=== PATIENT | female | born 1965 | race Caucasian/White ===

== ENCOUNTER 2017-01-29 12:50 | Emergency (ER) | payer MEDICARE, MEDICAID ==
[2017-01-29 13:15] VITALS: BP 130/77
--- NOTE | 2017-01-29 15:38 | UC ---
Headache HPI - HPI Summary HPI Summary: The patient comes in today for: 1. Headache--she states that she does not have a headache, but states that she has pain of the back of her head: Onset: 2 days ago. Palliative/provocative: Touching makes it worse. Nothing helps. Quality: Dull ache. Region: Posterior back of the head. Severity: 7/10 Time: Constant. Associated symptoms: Injury: None. Previous disease: None. Home treatment: No medications take for this. PCP: Dr. Potter The patient is concerned because her daughter from a brain tumor. * - History Of Current Complaint Chief Complaint: UC Stated Complaint: BACK OF HEAD HURTS Time Seen by Provider: 01/29/17 15:32 Hx Obtained From: Patient Hx Last Menstrual Period: many years ago - uterine ablation ?: No - Allergies/Home Medications Allergies/Adverse Reactions: Allergies Allergy/AdvReac Type Severity Reaction Status Date / Time Sulfamethoxazole Allergy Unknown SWELLING Verified 01/29/17 13:15 w/Trimethoprim FACIAL [From Bactrim] SEASONAL ALLERGIES Allergy SINUS Uncoded 01/29/17 13:15 PMH/Surg Hx/FS Hx/Imm Hx Previously Healthy: No Endocrine History Of: Reports: Thyroid Disease, Dyslipidemia Denies: Diabetes, Hyperthyroidism, Hypothyroidism Cardiovascular History Of: Reports: Hypertension - ON DAILY MEDS Respiratory History Of: Reports: Asthma - INHALER PRN, Bronchitis - 1 1/2 MONTH AGO Denies: COPD, Pneumonia, Pulmonary Embolism GI/ History Of: Reports: Gastroesophageal Reflux - She either has GERD or dyspepsia or both. Denies: Ulcer, Gastrointestinal Bleed, Gall Bladder Disease, Kidney Stones, Diverticulitis, Renal Disease, Urosepsis Neurological History Of: Denies: TIA, CVA, Dementia, Seizures, Migraine Psychological History Of: Reports: Depression - ON DAILY MEDS Denies: Anxiety, Bipolar Disorder, Schizophrenia, Post Traumatic Stress Disorder Cancer History Of: Denies: Lung Cancer, Colorectal Cancer, Breast Cancer, Prostate Cancer, Cervical Cancer Other History Of: Negative For: HIV, Hepatitis B, Hepatitis C, Anticoagulant Therapy - Surgical History Surgical History: Yes Surgery Procedure, Year, and Place: YOUNG CHILD T&A. TEENAGER THYROIDECTOMY. [address] [facility] [place]. 09/16 R ELBOW SURGERY FOR TENDONITIS. DEQUERVEIN- [facility]. 09/16 R CARPAL TUNNEL SURGERY, LT CARPAL TUNNEL RELEASE 2012. uterine ablation - Family History Known Family History: Positive: Cardiac Disease, Hypertension - Social History Occupation: Employed Full-time Alcohol Use: Rare Substance Use Type: None Smoking Status (MU): Never Smoked Tobacco - Immunization History Most Recent Influenza Vaccination: fall 2012 Review of Systems Constitutional: Negative Skin: Negative Eyes: Negative ENT: Negative Respiratory: Negative Cardiovascular: Negative Gastrointestinal: Negative Genitourinary: Negative Musculoskeletal: Arthralgia, Myalgia All Other Systems Reviewed And Are Negative: Yes Physical Exam Triage Information Reviewed: Yes Appearance: Well-Appearing, No Pain Distress, Well-Nourished Vital Signs: Initial Vital Signs Temp 98 F 01/29/17 13:08 Pulse 108 01/29/17 13:08 Resp 18 01/29/17 13:08 BP 130/77 01/29/17 13:08 Pulse Ox 98 01/29/17 13:08 Vital Signs Reviewed: Yes Eyes: Positive: Conjunctiva Clear. Negative: Discharge ENT: Positive: Hearing grossly normal. Negative: Pharyngeal erythema, Nasal congestion, Nasal drainage, TM bulging, TM dull, TM red, Tonsillar swelling, Tonsillar exudate Dental: Negative: Gross Decay/Caries @, Dental Fracture @ Neck: Positive: Supple, Nontender, No Lymphadenopathy. Negative: Nuchal Rigidity Respiratory: Positive: Chest non-tender, Lungs clear, No respiratory distress, No accessory muscle use. Negative: Crackles, Wheezing Cardiovascular: Positive: RRR, No Murmur Abdomen Description: Positive: Nontender, No Organomegaly, Soft Musculoskeletal: Positive: Strength Intact, ROM Intact Neurological: Positive: Alert, Muscle Tone Normal, Other: Psychological: Positive: Age Appropriate Behavior, Consolable Skin: Positive: Other - Evaluation of the skin in the area where she has the "bumps" and tenderness revealed no rash or masses. However, palpation of the greater occipetal nerve elicits the discomfort that she has.. Negative: rashes , breakdown Headache Course/Dx - Course Course Of Treatment: Patient was told that I thought her symptoms were related to left greater occipetal neuropathy. - Differential Dx/Diagnosis Provider Diagnoses: Left greater occipetal neuropathy. Discharge - Discharge Plan Condition: Stable Disposition: HOME Patient Education Materials: General Headache (ED) Referrals: Rafael March MD [Primary Care Provider] - 1 Week (Please see your primary care provider later this week or early next week. Use Tylenol to start in terms of pain control. If this does not help, you can also try a short course of an anti-inflammatory medication such as naproxen. Warm or cold compresses may be helpful. )
== END 2017-01-29 16:29 | disposition home or self-care (01) ==
LOC: UCEAST 12:50
DX: M54.81 Occipital neuralgia (principal); I10 Essential (primary) hypertension; J45.909 Unspecified asthma, uncomplicated; F32.9 Major depressive disorder, single episode, unspecified; Z88.2 Allergy status to sulfonamides
CPT/HCPCS: 99212; G0463

== ENCOUNTER 2017-04-03 15:21 | Emergency (ER) | payer MEDICARE, MEDICAID ==
[2017-04-03 16:18] VITALS: BP 148/78
--- NOTE | 2017-04-03 16:56 | UC ---
Complaint Female HPI - HPI Summary HPI Summary: pain , urgency and burning with urination began yesterday-no fevers, chills, nausea, vomiting - History Of Current Complaint Chief Complaint: UCGU Stated Complaint: URINARY ISSUE Time Seen by Provider: 04/03/17 16:54 Hx Obtained From: Patient Hx Last Menstrual Period: many years ago - uterine ablation ?: No Onset/Duration: Sudden Onset, Lasting Days - 1, Still Present Timing: Constant Severity Initially: Mild Severity Currently: Moderate Pain Intensity: 5 Pain Scale Used: 0-10 Numeric Character: Burning Aggravating Factor(s): Urination Alleviating Factor(s): Nothing Associated Signs And Symptoms: Positive: Negative - Allergies/Home Medications Allergies/Adverse Reactions: Allergies Allergy/AdvReac Type Severity Reaction Status Date / Time Sulfamethoxazole Allergy Unknown SWELLING Verified 01/29/17 13:15 w/Trimethoprim FACIAL [From Bactrim] SEASONAL ALLERGIES Allergy SINUS Uncoded 01/29/17 13:15 PMH/Surg Hx/FS Hx/Imm Hx Endocrine History: Hypothyroidism, Dyslipidemia Cardiovascular History: Hypertension GI/ History: Gastroesophageal Reflux Other History Of: Negative For: HIV, Hepatitis B, Hepatitis C, Anticoagulant Therapy - Surgical History Surgical History: Yes Surgery Procedure, Year, and Place: YOUNG CHILD T&A. TEENAGER THYROIDECTOMY. 1990 BILATERAL TUBAL LIGATION [facility]. ? CARDIAC ARTERY ABLATION [place]. 09/16 R ELBOW SURGERY FOR TENDONITIS. DEQUERVEIN- [facility]. 09/16 R CARPAL TUNNEL SURGERY, LT CARPAL TUNNEL RELEASE 2012. uterine ablation - Family History Known Family History: Positive: Cardiac Disease, Hypertension - Social History Occupation: Employed Full-time Lives: With Family Alcohol Use: Rare Substance Use Type: None Smoking Status (MU): Never Smoked Tobacco - Immunization History Most Recent Influenza Vaccination: fall 2012 Review of Systems Constitutional: Negative Skin: Negative Eyes: Negative ENT: Negative Respiratory: Negative Cardiovascular: Negative Gastrointestinal: Abdominal Pain Genitourinary: Dysuria, Frequency, Urgency Motor: Negative Neurovascular: Negative Musculoskeletal: Negative Neurological: Negative Psychological: Negative All Other Systems Reviewed And Are Negative: Yes Physical Exam Triage Information Reviewed: Yes Appearance: Well-Appearing, No Pain Distress, Well-Nourished Vital Signs: Initial Vital Signs Temp 97.8 F 04/03/17 16:14 Pulse 86 04/03/17 16:14 Resp 18 04/03/17 16:14 BP 148/78 04/03/17 16:14 Pulse Ox 99 04/03/17 16:14 Vital Signs Reviewed: Yes Eye Exam: Normal Eyes: Positive: Conjunctiva Clear ENT Exam: Normal ENT: Positive: Normal ENT inspection, Hearing grossly normal, TMs normal. Negative: Nasal congestion, Nasal drainage, Trismus, Muffled/hoarse voice Dental Exam: Normal Neck exam: Normal Neck: Positive: Supple, Nontender Respiratory Exam: Normal Respiratory: Positive: Chest non-tender, Lungs clear, Normal breath sounds, No respiratory distress, No accessory muscle use Cardiovascular Exam: Normal Cardiovascular: Positive: RRR, No Murmur, Pulses Normal, Brisk Capillary Refill Abdominal Exam: Other Abdomen Description: Positive: No Organomegaly, Soft, Other: - lower abd pain. Negative: CVA Tenderness (R), CVA Tenderness (L) Bowel Sounds: Positive: Present Musculoskeletal Exam: Normal Musculoskeletal: Positive: Strength Intact, ROM Intact, No Edema Neurological Exam: Normal Neurological: Positive: Alert, Muscle Tone Normal Psychological Exam: Normal Skin Exam: Normal Diagnostics - Laboratory Diagnostic Studies Completed/Ordered: blood, leuks in urine Complaint Female Dx - Course Course Of Treatment: , Keflex, pyridium, increase fluids, culture urine, follow BP with PCP, follow with pcp prn - Differential Dx/Diagnosis Differential Diagnosis/HQI/PQRI: Ovarian Cyst, Pelvic Inflammatory Disease, Retained Foreign Body, Ureteral Stone, Urinary Tract Infection Provider Diagnoses: Uti, Hypertension in poor control Discharge - Discharge Plan Condition: Stable Disposition: HOME Prescriptions: Cephalexin CAP* [Keflex CAP*] 500 mg PO BID #20 cap Phenazopyridine TAB* [Pyridium 100 mg TAB*] 100 mg PO TID PRN #6 tab PRN Reason: urinary pain and burning Patient Education Materials: Phenazopyridine (By mouth), Urinary Tract Infection in Women (ED), DASH Eating Plan (ED), Hypertension (ED) Referrals: Rafael March MD [Primary Care Provider] - 2 Weeks
== END 2017-04-03 17:33 | disposition home or self-care (01) ==
LOC: UCEAST 15:21
DX: N39.0 Urinary tract infection, site not specified (principal); E03.9 Hypothyroidism, unspecified; E78.5 Hyperlipidemia, unspecified; I10 Essential (primary) hypertension; K21.9 Gastro-esophageal reflux disease without esophagitis
CPT/HCPCS: 81003; 87086; 99212; G0463

== ENCOUNTER 2019-01-28 17:40 | Emergency (ER) | payer MEDICARE, MEDICAID ==
[2019-01-28] MEDS ORDERED: NS 0.9% 1000 ML** 1,000 ML IV ONE ×2 (18:01→18:38)
[2019-01-28] MEDS ORDERED: Morphine 4 MG/ML VIAL (1 ml) 4 MG/ML VIAL IV STA (18:06)
[2019-01-28] MEDS ORDERED: Ondansetron INJ* 2 MG/ML VIAL IV ONE (18:07)
--- NOTE | 2019-01-28 18:09 | ED ---
Influenza-Like Illness - HPI Summary HPI Summary: This pt is a 53 y/o female presenting to [facility] via EMS for influenza like symptoms since yesterday. Pt reports yesterday she began to experience a cough, chills and lower abd pain. She notes her abd pain is worse today. Additionally states sore throat, runny nose, nasal congestion, sinus pain, headache, nausea. Denies vomiting. She rates her headache 9/10 in severity. Pt with fever of 100.3 F currently in the ED. 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 - History of Current Complaint Chief Complaint: EDFluSymptoms Time Seen by Provider: 01/28/19 17:51 Hx Obtained From: Patient Onset/Duration: Gradual Onset, Lasting Days - 1, Still Present Severity: Moderate Associated Signs & Symptoms: Fever, F/C, Cough, Sore Throat, Nasal Congestion, Headache - Allergy/Home Medications Allergies/Adverse Reactions: Allergies Allergy/AdvReac Type Severity Reaction Status Date / Time Sulfa (Sulfonamide Allergy Swelling Verified 01/28/19 17:45 Antibiotics) trimethoprim Allergy Swelling Verified 01/28/19 17:45 SEASONAL ALLERGIES Allergy SINUS Uncoded 01/29/17 13:15 PMH/Surg Hx/FS Hx/Imm Hx Endocrine/Hematology History: Reports: Hx Thyroid Disease Denies: Hx Anticoagulant Therapy, Hx Diabetes Cardiovascular History: Reports: Hx Hypertension - ON DAILY MEDS, 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, FIELD REPORTER Denies: Hx Pacemaker/ICD Respiratory History: Reports: Hx Asthma - INHALER PRN Denies: Hx Chronic Obstructive Pulmonary Disease (COPD), Hx Lung Cancer, Hx Pneumonia, Hx Pulmonary Embolism GI History: Reports: Hx Irritable Bowel - SINCE TEENAGER,, Other GI Disorders Denies: Hx Gall Bladder Disease, Hx Gastrointestinal Bleed, Hx Ulcer, Hx Urosepsis Comment Only: Hx Gastroesophageal Reflux Disease - DENIES BUT ON OMEPRAZOLE History: Denies: Hx Kidney Stones, Hx Renal Disease Musculoskeletal History: Reports: Hx Arthritis - RIGHT SHOULDER, Hx Tendonitis - BOTH ARMS Sensory History: Reports: Hx Contacts or Glasses - GLASSES Denies: Hx Hearing Aid Opthamlomology History: Reports: Hx Contacts or Glasses - GLASSES Neurological History: Reports: Hx Headaches Denies: Hx Dementia, Hx Migraine, Hx Seizures, Hx Transient Ischemic Attacks (TIA) Psychiatric History: Reports: Hx Depression - ON DAILY MEDS Denies: Hx Anxiety, Hx Panic Disorder, Hx Schizophrenia, Hx Bipolar Disorder - Cancer History Hx Chemotherapy: No Hx Radiation Therapy: No - Surgical History Surgery Procedure, Year, and Place: YOUNG CHILD T&A. TEENAGER THYROIDECTOMY. 1990 BILATERAL TUBAL LIGATION [facility] [place]. 1999[place] ? CARDIAC ARTERY ABLATION [place]. 09/16 R ELBOW SURGERY FOR TENDONITIS. DEQUERVEIN- [facility]. 09/16 R CARPAL TUNNEL SURGERY, LT CARPAL TUNNEL RELEASE 2012. uterine ablation Hx Anesthesia Reactions: Yes - WITH RIGHT ELBOW SURGERY- HAD A HARD TIME WAKING IUP - Immunization History Immunizations Up to Date: Yes Infectious Disease History: No Infectious Disease History: Denies: Hx Clostridium Difficile, Hx Hepatitis, Hx Human Immunodeficiency Virus (HIV), Hx of Known/Suspected MRSA, Hx Shingles, Hx Tuberculosis, Hx Known/ Suspected VRE, Hx Known/Suspected VRSA, History Other Infectious Disease, Traveled Outside the [place] in Last 30 Days - Family History Known Family History: Positive: Cardiac Disease, Hypertension - Social History Alcohol Use: Rare Substance Use Type: Reports: None Smoking Status (MU): Never Smoked Tobacco Review of Systems Positive: Fever, Chills ENT: Other - POS: nasal congestion, sinus pain Positive: Sore Throat, Nasal Discharge Positive: Cough Positive: Abdominal Pain, Nausea Positive: Headache All Other Systems Reviewed And Are Negative: Yes Physical Exam - Summary Physical Exam Summary: Appearance: Well appearing, no pain distress Skin: warm, dry, reflects adequate perfusion Head/face: normal Eyes: EOMI, NURA ENT: normal Neck: supple, non-tender Respiratory: CTA, breath sounds present Cardiovascular: RRR, pulses symmetrical Abdomen: LLQ tenderness, soft Musculoskeletal: normal, strength/ROM intact Neuro: normal, sensory motor intact, A&Ox3 GCS: 15 Triage Information Reviewed: Yes Vital Signs On Initial Exam: Initial Vitals Temp Pulse Resp BP Pulse Ox 100.3 F 115 20 150/78 95 01/28/19 17:45 01/28/19 17:45 01/28/19 17:45 01/28/19 17:45 01/28/19 17:45 Vital Signs Reviewed: Yes Diagnostics - Vital Signs Vital Signs Temp Pulse Resp BP Pulse Ox 01/28/19 17:55 117 147/75 93 01/28/19 17:45 100.3 F 115 20 150/78 95 - Laboratory Result Diagrams: 01/28/19 18:31 01/28/19 18:31 Lab Statement: Any lab studies that have been ordered have been reviewed, and results considered in the medical decision making process. - CT Brain CT CT Interpretation Completed By: Radiologist Summary of CT Findings: IMPRESSION: No acute intracranial pathology. Dr. Grace has reviewed this report. Abdomen/pelvis CT CT Interpretation Completed By: Radiologist Summary of CT Findings: IMPRESSION: 1. Stable small hiatal hernia. 2. Stable possible small uterine fibroid measuring 1.3 cm. 3. No acute diverticulitis or other inflammatory change in the bowel. Dr. Grace has reviewed this report. - EKG 18:19 Cardiac Rate: Tachycardia - at 115 bpm EKG Rhythm: Sinus Tachycardia Summary of EKG Findings: No acute changes. Re-Evaluation - Re-Evaluation First Eval Re-Evaluation Time: 21:32 Comment: Reviewed lab and CT results with the pt. She will be discharged home with follow up from PCP. Flu Symptom Course/Dx - Course Assessment/Plan: Pt is a 53 y/o female who presents via EMS for influenza like symptoms since yesterday. Her symptoms include cough, chills, sore throat, runny nose, nasal congestion, sinus pain, abd pain, nausea, headache. Fever of 100.3 F in the ED. Blood work, urinalysis, EKG, CTs obtained. Influenza A is positive. Brain CT is negative. Abdomen/Pelvis CT shows 1. Stable small hiatal hernia. 2. Stable possible small uterine fibroid measuring 1.3 cm. 3. No acute diverticulitis or other inflammatory change in the bowel. In the ED course the pt received IV fluids, morphine, zofran. Pt will be discharged home with follow up from her PCP in 3 days. Pt given Rx for Tamiflu. She is instructed to return to the ED for any new or worsening symptoms. - Diagnoses Differential Diagnosis/HQI/PQRI: Positive: Influenza, Upper Respiratory Infection, Other - diverticulitis Provider Diagnoses: Influenza Discharge - Sign-Out/Discharge Documenting (check all that apply): Patient Departure - Discharge home Patient Received Moderate/Deep Sedation with Procedure: No - Discharge Plan Condition: Stable Disposition: HOME Prescriptions: Oseltamivir Phosphate [Tamiflu] 75 mg PO BID #10 capsule Patient Education Materials: Influenza (ED) Referrals: Rafael March MD [Primary Care Provider] - Additional Instructions: Please follow up with your primary care provider in 3 days. RETURN TO THE ED FOR ANY WORSENING OR NEW SYMPTOMS. - Billing Disposition and Condition Condition: STABLE Disposition: Home - Attestation Statements Document Initiated by Scribe: Yes Documenting Scribe: Fiordaliza Weldon Provider For Whom Scribe is Documenting (Include Credential): Pavel Grace MD Scribe Attestation: Fiordaliza Zepeda scribed for Pavel Grace MD on 01/28/19 at 2148. Scribe Documentation Reviewed: Yes Provider Attestation: The documentation as recorded by the Fiordaliza magaña accurately reflects the service I personally performed and the decisions made by Pavel savage MD Status of Scribe Document: Viewed
--- OUTSIDE RECORDS SUMMARY | 2019-01-28 18:11 | XMS REPORT | Continuity of Care Document ---
:1965 External Reference #:[id number] Author Name Riir Ventura Care Team Providers Name Role Phone Rafael March M.D. Primary Care Physician Unavailable Payers Date Identification Numbers Payment Provider Subscriber Expires: 2015 Policy Number: [id number] [facility] Drea Moreno PayID: [id number] [address] [address] [place] [address] Expires: 2013 Policy Number: [id number] [place] Drea Moreno PayID: [id number] [address] [place] [address] Policy Number: [id number] Medicare [facility] Drea Moreno PayID: [id number] [address] [address] [place] [address] Policy Number: [id number] [place] Drea Moreno PayID: [id number] [address] [place] [address] Advance Directives Description No Information Available Problems Date Description Provider Status Onset: 05/20/2013 Dysplasia of cervix ANTELMO Lazo Active Note: +HRHPV Family History Date Family Member(s) Observation Comments Father Hypertension Father Diabetes Mellitus, II Father Heart Disease pacemaker Mother Osteoporosis Number of Children 3 First Son Add First Son Hepatitis C Second Son Bipolar Disorder First Daughter Drug Addiction went through rehab, clean for several years. First Daughter due to Brain Tumor () - 09/2015 First Daughter Brain Tumor stage 3 in her brain stem as of 2014 Number of Siblings Siblings: 5 First Brother A&W Second Brother Prostate Cancer First Sister due to Unknown Causes () Second Sister due to blood disease () Second Sister due to Bladder Cancer () Third Sister A&W Paternal Grandfather due to Diabetes () Paternal Grandmother due to Old Age () Maternal Grandfather due to Unknown Causes () Maternal Grandmother Arthritis Maternal Grandmother due to Unknown Causes () Maternal Grandmother Dementia Maternal Grandmother CHF Social History Type Date Description Comments Sex Unknown Education Highest level of education completed is 12th grade Marital Status Patient is single Living Situation Patient lives alone Diet Diet is healthy and well balanced Occupation Disabled Cigarette Use Never smoked cigarettes Alcohol Rarely drinks alcohol Tobacco Use Start: Unknown Patient has never smoked Drug Use Denies drug use Smoking Status Reviewed: 01/15/19 Patient has never smoked Daily Caffeine Does not consume caffeine Exercise Type/Frequency Exercises sporadically Current Seat Belt/Car Seat Always uses a seat belt Currently Active The patient is currently sexually active Contraceptive Methods Does not currently use any method of control STD's Has HPV Allergies, Adverse Reactions, Alerts Date Description Reaction Status Severity Comments 12/08/2005 Bactrim Active Medications Medication Date Status Form Strength Qnty SIG Indications Ordering Provider Prempro 03/01/ Active Tablets 0.45-1.5m 84tab 1 by mouth Tiffanie 2017 g s every day LUIS Jama Synthroid / Active 88mcg Unknown 0000 Singulair / Active Tablets 10mg Unknown 0000 Pristiq / Active Tablets 100mg Unknown 0000 ER 24HR Clarinex / Active Unknown 0000 Losartan / Active Unknown Potassium/Hydroch 0000 lorothiazide Ibuprofen / Active 600mg Unknown 0000 Omeprazole / Active 40mg Unknown 0000 Pravastatin / Active Unknown Sodium 0000 Align / Active Capsules 4mg one by Unknown 0000 mouth daily for probiotic Phenazopyridine 04/25/ Hx Tablets 200mg 12tab 2 po 3 xa Piter A. HCL 2016 - day with Gelber, 03/18/ meals x 2 M.D. 2017 days Femhrt Low Dose 01/17/ Hx Tablets 0.5-2.5mg 90tab 1 po qd Nicole 2015 - -mcg s Jump, 07/24/ ANP-C 2015 Norethindrone 12/06/ Hx Tablets 1-5mg-mcg Nicole Acetate/Ethinyl 2015 - Jump, Estradiol 01/17/ ANP-C 2015 Nuvessa 11/29/ Hx Gel 1.3% 1unit use at Nicole 2016 - s bedtime x 1 Jump, 07/24/ ANP-C 2016 Metrogel-Vaginal 11/30/ Hx Gel 0.75% 1TX 1 Nicole 2014 - applicator Jump, 12/05/ every night ANP-C 2015 at bedtime x 5 days Metrogel-Vaginal 12/23/ Hx Gel 0.75% 1TX 1 Nicole 2013 - applicator Jump, 12/28/ qhs x 5 ANP-C 2013 days Cipro 12/18/ Hx Tablets 250mg 10tab 1 po bid x Nicole 2013 - s 5 Jump, 01/02/ ANP-C 2012 Keflex 05/29/ Hx Capsules 500mg 14cap 1 po bid x Nicole 2012 - s 7 Jump, 06/05/ ANP-C 2012 Prempro 04/29/ Hx Tablets 0.45-1.5m 84tab take 1 N95.1 Nicole 2011 - g s tablet by Jump, 01/17/ mouth one ANP-C 2016 time daily Activella 08/18/ Hx Tablets 0.5-0.1mg 84tab Take One 627.2 Nicole 2009 - s Tablet By Jump, 04/29/ Mouth Every ANP-C 2011 Day Activella 01/24/ Hx Tablets 0.5-0.1mg 1mont 1 po qd Nicole 2009 - h Jump, 08/21/ ANP-C 2009 Abilify 06/21/ Hx Tablets 5mg Unknown 2008 - 2009 Ambien CR 07/09/ Hx Tablets 12.5mg 30tab 1 po qhs Marco Antonio Burdick 2007 - s prn C.N.M. 2008 Laclotion 06/14/ Hx Lotion 12% 225GR apply once Leona 2006 - A day Wil, 01/23/ CN 2009 Ambien CR 06/12/ Hx Tablets 6.25mg 15tab 1 tablet po Leona 2006 - s hs prn Wil, 12/03/ sleep CN 2007 Effexor /00/ Hx Unknown - 2006 Silvana D // Hx Unknown 2006 Avapro / Hx Tablets 150mg daily Unknown 2014 Enablex / Hx Tablets 15mg Unknown 2007 Nexium / Hx Unknown 2014 Nasonex / Hx Unknown 2017 Black Cohosh / Hx Unknown 2017 Vitamin B12 / Hx Tablets 1000mcg once a day Unknown 0000 - ER 2017 Medications Administered in Office Medication Date Status Form Strength Qnty SIG Indications Ordering Provider PT SCRN Tbco Administered Injection Mya Id as Non User 019 MD Gareth No PT Tbco Administered Injection Nicole SCRN RNG 018 Jump, ANP-C PT SCRN Tbco Administered Injection Nicole Id as Non User 018 Jump, ANP-C SCRN Cris Perf Administered Injection Nicole RSLTS Not Doc 018 Jump, ANP-C PT SCRN Tbco Administered Injection Piter Tobin Id as Non User 018 Melina Cuba Immunizations Description No Information Available Vital Signs Date Vital Result Comment 01/15/2019 10:25am BP Systolic 146 mmHg BP Diastolic 84 mmHg Height 62 inches 5'2" Weight 197.00 lb BMI (Body Mass Index) 36.0 kg/m2 Last Menstrual Period 2371278 5 Parity 3 12/03/2018 2:15pm BP Systolic 150 mmHg BP Diastolic 86 mmHg Height 62 inches 5'2" Weight 199.00 lb BMI (Body Mass Index) 36.4 kg/m2 Last Menstrual Period 3462518 5 Parity 3 10/10/2018 11:07am BP Systolic 142 mmHg BP Diastolic 84 mmHg Height 62 inches 5'2" Weight 200.00 lb BMI (Body Mass Index) 36.6 kg/m2 Last Menstrual Period 7194328 5 Parity 3 03/18/2018 2:40pm BP Systolic 158 mmHg BP Diastolic 92 mmHg Height 62 inches 5'2" Weight 196.00 lb BMI (Body Mass Index) 35.8 kg/m2 Last Menstrual Period 7109896 5 Parity 3 02/27/2017 3:26pm BP Systolic 128 mmHg BP Diastolic 82 mmHg Height 62 inches 5'2" Weight 189.00 lb BMI (Body Mass Index) 34.6 kg/m2 Last Menstrual Period 3772910 5 Parity 3 07/24/2016 11:27am BP Systolic 150 mmHg BP Diastolic 78 mmHg Height 62 inches 5'2" Weight 185.00 lb BMI (Body Mass Index) 33.8 kg/m2 Last Menstrual Period 3827078 5 Parity 3 12/27/2015 2:34pm BP Systolic 122 mmHg BP Diastolic 82 mmHg Height 62 inches 5'2" Weight 186.00 lb BMI (Body Mass Index) 34.0 kg/m2 Last Menstrual Period 4046047 5 Parity 3 11/29/2015 2:55pm BP Systolic 136 mmHg BP Diastolic 80 mmHg Height 62 inches 5'2" Weight 185.00 lb BMI (Body Mass Index) 33.8 kg/m2 Last Menstrual Period 2978628 5 Parity 3 07/05/2015 1:13pm BP Systolic 124 mmHg BP Diastolic 82 mmHg Height 62 inches 5'2" Weight 186.00 lb BMI (Body Mass Index) 34.0 kg/m2 Last Menstrual Period 5612736 5 Parity 3 03/22/2015 11:00am BP Systolic 124 mmHg BP Diastolic 78 mmHg Height 62 inches 5'2" Weight 186.00 lb BMI (Body Mass Index) 34.0 kg/m2 01/04/2015 10:45am BP Systolic 138 mmHg BP Diastolic 84 mmHg Height 62 inches 5'2" Weight 188.00 lb BMI (Body Mass Index) 34.4 kg/m2 Last Menstrual Period 6010514 5 Parity 3 11/26/2014 3:38pm BP Systolic 136 mmHg BP Diastolic 86 mmHg Height 62 inches 5'2" Weight 188.00 lb BMI (Body Mass Index) 34.4 kg/m2 Last Menstrual Period 4090435 5 Parity 3 01/02/2014 10:53am BP Systolic 120 mmHg BP Diastolic 78 mmHg Height 62 inches 5'2" Weight 183.00 lb BMI (Body Mass Index) 33.5 kg/m2 5 Parity 3 12/18/2013 10:59am BP Systolic 128 mmHg BP Diastolic 82 mmHg Height 62 inches 5'2" Weight 182.00 lb BMI (Body Mass Index) 33.3 kg/m2 5 Parity 3 05/27/2013 10:19am BP Systolic 136 mmHg BP Diastolic 78 mmHg Height 62 inches 5'2" Weight 182.00 lb BMI (Body Mass Index) 33.3 kg/m2 5 Parity 3 05/14/2013 12:50pm BP Systolic 124 mmHg BP Diastolic 80 mmHg Height 62 inches 5'2" Weight 179.00 lb BMI (Body Mass Index) 32.7 kg/m2 5 Parity 3 03/07/2013 11:18am BP Systolic 112 mmHg BP Diastolic 74 mmHg Height 62 inches 5'2" Weight 176.00 lb BMI (Body Mass Index) 32.2 kg/m2 5 Parity 3 02/03/2013 2:32pm BP Systolic 130 mmHg BP Diastolic 82 mmHg Height 62 inches 5'2" Weight 178.00 lb BMI (Body Mass Index) 32.6 kg/m2 5 Parity 3 11/25/2012 10:45am BP Systolic 112 mmHg BP Diastolic 74 mmHg Height 62 inches 5'2" Weight 178.00 lb BMI (Body Mass Index) 32.6 kg/m2 5 Parity 3 11/15/2012 11:04am BP Systolic 128 mmHg BP Diastolic 66 mmHg Height 62 inches 5'2" Weight 181.00 lb BMI (Body Mass Index) 33.1 kg/m2 04/29/2012 11:03am BP Systolic 116 mmHg BP Diastolic 82 mmHg Height 62 inches 5'2" Weight 178.00 lb BMI (Body Mass Index) 32.6 kg/m2 Last Menstrual Period 0 2007 5 Parity 3 09/22/2011 11:42am BP Systolic 120 mmHg BP Diastolic 66 mmHg Height 62 inches 5'2" Weight 183.00 lb BMI (Body Mass Index) 33.5 kg/m2 08/21/2011 10:30am BP Systolic 150 mmHg BP Diastolic 78 mmHg BP Systolic Recheck 128 mmHg BP Diastolic Recheck 80 mmHg Height 62 inches 5'2" Weight 185.00 lb BMI (Body Mass Index) 33.8 kg/m2 5 Parity 3 03/06/2011 10:39am BP Systolic 128 mmHg BP Diastolic 84 mmHg Height 62 inches 5'2" Weight 177.00 lb BMI (Body Mass Index) 32.4 kg/m2 Last Menstrual Period 0 5 Parity 3 08/29/2010 9:56am BP Systolic 118 mmHg BP Diastolic 78 mmHg Height 62 inches 5'2" Weight 167.00 lb BMI (Body Mass Index) 30.5 kg/m2 5 Parity 3 08/18/2010 11:10am BP Systolic 132 mmHg BP Diastolic 74 mmHg Height 62 inches 5'2" Weight 169.00 lb BMI (Body Mass Index) 30.9 kg/m2 5 Parity 3 07/21/2010 2:30pm BP Systolic 124 mmHg BP Diastolic 78 mmHg Height 62 inches 5'2" Weight 168.00 lb BMI (Body Mass Index) 30.7 kg/m2 5 Parity 3 04/25/2010 10:23am BP Systolic 110 mmHg BP Diastolic 82 mmHg Height 62 inches 5'2" Weight 166.00 lb BMI (Body Mass Index) 30.4 kg/m2 5 Parity 3 01/24/2010 9:22am BP Systolic 130 mmHg BP Diastolic 78 mmHg Height 62 inches 5'2" Weight 164.00 lb BMI (Body Mass Index) 30.0 kg/m2 Last Menstrual Period 0 2007 5 Parity 3 06/21/2009 1:21pm BP Systolic 118 mmHg BP Diastolic 70 mmHg Height 62 inches 5'2" Weight 162.00 lb BMI (Body Mass Index) 29.6 kg/m2 06/12/2008 1:05pm BP Systolic 122 mmHg BP Diastolic 74 mmHg Height 62 inches 5'2" Weight 141.00 lb BMI (Body Mass Index) 25.8 kg/m2 04/29/2008 1:30pm BP Systolic 120 mmHg BP Diastolic 80 mmHg Height 62 inches 5'2" Weight 142.00 lb BMI (Body Mass Index) 26.0 kg/m2 Last Menstrual Period [id number] 04/24/2008 1:08pm BP Systolic 120 mmHg BP Diastolic 88 mmHg Body Temperature 97.0 F Height 62 inches 5'2" Weight 142.00 lb BMI (Body Mass Index) 26.0 kg/m2 Last Menstrual Period 6829562 5 Parity 3 06/12/2007 4:40pm BP Systolic 92 mmHg BP Diastolic 64 mmHg Height 62 inches 5'2" Weight 145.00 lb BMI (Body Mass Index) 26.5 kg/m2 12/08/2005 11:50am BP Systolic 152 mmHg BP Diastolic 84 mmHg Height 62 inches 5'2" Weight 135.00 lb BMI (Body Mass Index) 24.7 kg/m2 Last Menstrual Period 1395735 5 Parity 3 Results Test Date Facility Test Result H/L Range Note Laboratory test 12/03/2018 [facility] Surgical SEE RESULT 1 [place] [address] Pathology BELOW [phone] Laboratory test 10/10/2018 [facility] Cytology SEE RESULT LGSIL,+HPV 2 finding [place] [address] BELOW [phone] Laboratory test 03/18/2018 [facility] Cytology SEE RESULT 3 finding [place] [address] BELOW [phone] Laboratory test 04/25/2017 [facility] Surgical SEE RESULT 4 finding [place] [address] Pathology BELOW [phone] Laboratory test 02/27/2017 [facility] Cytology SEE RESULT letter 5 finding [place] [address] BELOW dictatd [phone] Human Papilloma Virus Rna POSITIVE Abnormal Negative 6 Laboratory test 07/24/2016 [facility] Cytology SEE RESULT LGSIL 7 finding [place] [address] BELOW [phone] Human Papilloma Virus Rna POSITIVE Abnormal Negative 8 Laboratory test 12/27/2015 [facility] Surgical SEE RESULT 9 finding [place] [address] Pathology BELOW [phone] Laboratory test 11/29/2015 [facility] Cytology SEE RESULT LGSIL 10 finding [place] [address] BELOW [phone] Human Papilloma Virus Rna POSITIVE Abnormal Negative 11 Laboratory test 07/05/2015 [facility] Cytology SEE RESULT LGSIL 12 finding [place] [address] BELOW [phone] Human Papilloma Virus Rna POSITIVE Abnormal Negative 13 Laboratory test 01/04/2015 [facility] Surgical RUN DATE: 14 finding [place] [address] Pathology <SEE [phone] NOTE> Laboratory test 11/26/2014 [facility] Cytology RUN DATE: bv 15 finding [place] [address] 11/30/ <SEE [phone] NOTE> Human Papilloma Virus Rna Positive Abnormal Negative 16 Laboratory test 12/18/2013 [facility] Cytology RUN DATE: bv/ 17 finding [place] [address] 12/19/ <SEE [phone] NOTE> HPV High Risk 12/18/2013 [facility] Human ECTO/ENDO [place] [address] Papillomavirus [phone] Source HPV High Risk Type 16, PCR Negative Negative HPV High Risk Type 18, PCR Negative Negative HPV Other Risk types Positive Negative 18 HIV 1/2 AB 05/27/2013 [facility] HIV 1 2 Nonreactive Nonreactive 19 [place] [address] Antibody [phone] RPR 05/27/2013 [facility] Syphilis IgG Nonreactive Nonreactive 20 [place] [address] [phone] RPR TNP Nonreactive RPR Titer TNP Pediatric/Maternal NO GC/Chlamydia Dna 05/27/2013 [facility] GC/Chlamydia Rna (SEE NOTE) Neg [address] [place] [address] [phone] Laboratory test 05/27/2013 [facility] Genital Culture (SEE NOTE ) [address] [place] [address] [phone] Human Papilloma 05/15/2013 [facility] Human See Comment 23 [place] [address] Papillomavirus [phone] Source Human Papillomavirus High Risk Positive Negative 24 Laboratory test 05/14/2013 [facility] Cytology RUN DATE: LGSIL [address] [place] [id number] SEE [phone] NOTE> Laboratory test 02/03/2013 [facility] Surgical RUN DATE: [address] [place] [address] Pathology 02/05/ <SEE [phone] NOTE> Laboratory test 11/25/2012 [facility] Surgical RUN DATE: 27 [place] [address] Pathology <SEE [phone] NOTE> Laboratory test 11/15/2012 [facility] Cytology RUN DATE: LGSIL 28 [place] [address] 11/18/ <SEE [phone] NOTE> Laboratory test 04/29/2012 [facility] Cytology LGSIL [address] [place] [address] ----- <SEE [phone] NOTE> Laboratory test 09/22/2011 [facility] Surgical [address] [place] [address] Pathology ----- <SEE [phone] NOTE> Laboratory test 08/21/2011 [facility] Cytology LGSIL [address] [place] [address] ----- <SEE [phone] NOTE> Laboratory test 03/06/2011 [facility] Cytology [address] [place] [address] ----- <SEE [phone] NOTE> Laboratory test 08/29/2010 [facility] Surgical [address] [place] [address] Pathology ----- <SEE [phone] NOTE> Laboratory test 08/18/2010 [facility] Cytology needs colp [address] [place] [address] ----- <SEE [phone] NOTE> Laboratory test 06/21/2009 [facility] Cytology [address] [place] [address] ----- <SEE [phone] NOTE> Laboratory test 06/12/2008 [facility] Cytology [address] [place] [address] ----- <SEE [phone] NOTE> Laboratory test 12/04/2007 [facility] FSH 124.16 [address] [place] [address] MIU/ML [phone] Laboratory test 06/13/2007 [facility] Cytology [address] [place] [address] ----- <SEE [phone] NOTE> 1 SEE RESULT BELOW Name: DREA MORENO : [address]: Piter Cuba MD Acct: [id number] Unit: [id number] AGE: 53 Location: [facility] Re12/03/18 SEX: F Status: REG REF SPEC: [id number] [place]: 12/03/18 [facility] DR: Piter Cuba MD REQ: [id number] RECD: 12/04/18 STATUS: ANDRES FLORENCE DR: Rafael March MD _ ORDERED: LEVEL 4, LEVEL 5, IMMUNO-FIRST COMMENTS: [id number] FINAL DIAGNOSIS 1. Uterus, cervix, LEEP excision: -- Focal low-grade squamous intraepithelial lesion (condyloma). -- Inked and cauterized margins of resection are clear. 2. Uterus, endocervix, curettage: --Low-grade limits intraepithelial lesion (condyloma). See comment. -- Benign endocervical glandular epithelium and mucus. Comment: Part 2 demonstrates a detached fragments of squamous epithelium demonstrating condylomatous features. An immunohistochemical stain performed on part 2 with appropriate controls demonstrates weak to moderate primarily basilar staining supporting the above rendered diagnosis. PRE-OPERATIVE DIAGNOSIS Low grade squamous intraepithelial lesion, positive human papilloma virus GROSS DESCRIPTION 1. The specimen is received in formalin labeled, Cervical Biopsy by LEEP, and consists of a 1.2 x 1.0 cm curry-white ovoid rubbery focally cauterized soft tissue fragment excised to a depth of 0.7 cm. The specimen is consistent with an unoriented cervical LEEP biopsy. The ectocervix is smooth to wrinkled curry-white with a central 0.7 cm slitlike os. The endocervix is curry-white. The specimen is inked as follows: ectocervical margin-black and endocervical margin-blue, serially sectioned in a radial fashion and entirely submitted in cassettes A through D. CONTINUED ON NEXT PAGE DEPARTMENT OF PATHOLOGY, [address] [place] [address] Jeffy Floyd M.D. Director [facility] # [id number] RUN DATE: 12/09/18 [facility] LAB LIVE PAGE 2 Patient: DREA MORENO [id number] (Continued) GROSS DESCRIPTION (Continued) 2. The specimen is received in formalin labeled, ECC, and consists of a 1.3 x 0.6 x 0.1 cm aggregate of transparent mucus admixed with scant possible soft tissue fragments. Entirely submitted, one cassette. Signed by and Reported on: Jeffy Floyd MD 02/21 0937 END OF REPORT DEPARTMENT OF PATHOLOGY, [address] [place] [address] Jeffy Floyd M.D. Director [facility] # [id number] 2 SEE RESULT BELOW Name: DREA MORENO : [address]: Nicole Bains Acct: [id number] Unit: [id number] AGE: 53 Location: [facility] Re10/10/18 SEX: F Status: REG REF SPEC: [id number] RY[place]: 10/10/18-[address]: Nicole Bains REQ: [id number] RECD: 10/10/180558 STATUS: ANDRES FLORENCE DR: Rafael March MD _ ORDERED: TP IMAGE ANALYS, WEED INSPECTOR PHYS INTERP, HPV/Thin Prep COMMENTS: [id number] EPITHELIAL CELL ABNORMALITIES Low grade squamous intraepithelial lesion (LSIL) Date Time Test Result Flag (u) Normal Range 10/10/18 1122 @ HPV RNA POSITIVE An Negative @ @ The high-risk HPV types detected by the assay include: 16, @ 18, 31, 33, 35, 39, 45, 51, 52, 56, 58, 59, 66, and 68. A. Ectocervical/Endocervical Specimen Adequacy: Satisfactory of evaluation Transformation zone component not identified Patient Information: HPV: High risk HPV RNA testing regardless of pap results. Actual Specimen Date: 10/07/18 LMP If Unknown: 2008 Date of Last Specimen: 03/18/18 Post Menopausal?: N Signed by and Reported on: Namrata Zuniga MD 10/11/18 1830 This Pap test was evaluated with the assistance of the [employer] Test Imaging System. Due to cytologic findings at the verification manager microscope, comprehensive manual rescreening by a Service Order Expediter may be required. The Pap Smear is a screening test designed to aid in the detection of premalignant and malignant conditions of the uterine cervix. It is not a diagnostic procedure and should not be used as the sole means of detecting cervical cancer. Both false- positive and false- negative reports do occur. Depending on your risk status, a Pap smear should be obtained and evaluated every 1-3 years. END OF REPORT DEPARTMENT OF PATHOLOGY, [address] [place] [address] Jeffy Floyd M.D. Director [facility] # [id number] 3 SEE RESULT BELOW Name: DREA MORENO : [address]: Piter [place] MD Acct: [id number] Unit: [id number] AGE: 52 Location: [facility] Re03/18/18 SEX: F Status: REG REF SPEC: [id number] RY[place]: 03/18/18-[address]: Piter [place] MD REQ: [id number] RECD: 03/19/18 STATUS: SOUT _ ORDERED: TP IMAGE ANALYS, WEED INSPECTOR PHYS INTERP, HPV/Thin Prep COMMENTS: [id number] EPITHELIAL CELL ABNORMALITIES Low grade squamous intraepithelial lesion (LSIL) A. Ectocervical/Endocervical Specimen Adequacy: Satisfactory of evaluation Transformation zone component identified Patient Information: HPV: High risk HPV RNA testing regardless of pap results. Actual Specimen Date: 03/18/18 LMP If Unknown: 2007 Date of Last Specimen: 02/27/17 Post Menopausal?: Y Date Time Test Result Flag (u) Normal Range 03/18/18 1600 @ HPV RNA POSITIVE An Negative @ @ The high-risk HPV types detected by the assay include: 16, @ 18, 31, 33, 35, 39, 45, 51, 52, 56, 58, 59, 66, and 68. Signed by and Reported on: Jeffy Floyd MD 4248 This Pap test was evaluated with the assistance of the [employer] Test Imaging System. Due to cytologic findings at the verification manager microscope, comprehensive manual rescreening by a Service Order Expediter may be required. The Pap Smear is a screening test designed to aid in the detection of premalignant and malignant conditions of the uterine cervix. It is not a diagnostic procedure and should not be used as the sole means of detecting cervical cancer. Both false- positive and false- negative reports do occur. Depending on your risk status, a Pap smear should be obtained and evaluated every 1-3 years. END OF REPORT DEPARTMENT OF PATHOLOGY, [address] [place] [address] Jeffy Floyd M.D. Director [facility] # [id number] 4 SEE RESULT BELOW Name: DREA MORENO : [address]: Piter [place] MD Acct: [id number] Unit: [id number] AGE: 52 Location: [facility] Re04/25/17 SEX: F Status: REG REF SPEC: [id number] [place]: 04/25/17-1541 [facility] DR: Piter [place] MD REQ: [id number] RECD: 04/26/17-1145 STATUS: SOUT _ ORDERED: LEVEL 4 COMMENTS: [id number] FINAL DIAGNOSIS Uterus, endocervix, curettage: -- Benign endocervical mucosa with no significant pathologic abnormalities. PRE-OPERATIVE DIAGNOSIS Low grade squamous intraepithelial lesion, positive human papilloma virus GROSS DESCRIPTION The specimen is received in formalin labeled, ECC, and consists of a 1.5 x 1.0 x 0.5 cm aggregate of blood-tinged mucus which is submitted entirely in one cassette. Signed (signature on file) Namrata Zuniga MD 1240 END OF REPORT * ML=Testing performed at Main Lab DEPARTMENT OF PATHOLOGY, [address] [place] [address] Jeffy Floyd M.D. Director [facility] # [id number] 5 SEE RESULT BELOW Name: DREA MORENO : [address]: Nicole Bains Acct: [id number] Unit: [id number] AGE: 51 Location: [facility] Re02/27/17 SEX: F Status: REG REF SPEC: [id number] RY[place]: 02/27/17-[address]: Nicole Bains REQ: [id number] RECD: 02/28/17-1253 STATUS: SOUT _ ORDERED: IMAGE ANALYSIS, PAP SM PATH REV, HPV/Thin Prep COMMENTS: [id number] FINAL DIAGNOSIS EPITHELIAL CELL ABNORMALITIES Low grade squamous intraepithelial lesion (LSIL) A. Ectocervical/Endocervical Specimen Adequacy: Satisfactory of evaluation Transformation zone component identified Patient Information: HPV: High risk HPV RNA testing regardless of pap results. Actual Specimen Date: 02/27/17 LMP If Unknown: 2007 Date of Last Specimen: 07/24/16 Previous Abnormal Pap Smears?:Y If Yes, enter Diagnosis: Low grade squamous intraepithelial lesion. +HPV Date Time Test Result Flag (u) Normal Range 02/27/17 1555 HPV RNA POSITIVE H Negative The high-risk HPV types detected by the assay include: 16, 18, 31, 33, 35, 39, 45, 51, 52, 56, 58, 59, 66, and 68. Signed (signature on file) Jeffy Floyd MD 1709 This Pap test was evaluated with the assistance of the [employer] Test Imaging System. Due to cytologic findings at the verification manager microscope, comprehensive manual rescreening by a Service Order Expediter may be required. The Pap Smear is a screening test designed to aid in the detection of premalignant and malignant conditions of the uterine cervix. It is not a diagnostic procedure and should not be used as the sole means of detecting cervical cancer. Both false- positive and false- negative reports do occur. Depending on your risk status, a Pap smear should be obtained and evaluated every 1-3 years. END OF REPORT * ML=Testing performed at Main Lab DEPARTMENT OF PATHOLOGY, [address] [place] [address] Jeffy Floyd M.D. Director [facility] # [id number] RUN DATE: 03/01/17 [facility] LAB LIVE PAGE 1 Patient: DREA MORENO [id number] (Continued) 6 The high-risk HPV types detected by the assay include: 16, 18, 31, 33, 35, 39, 45, 51, 52, 56, 58, 59, 66, and 68. 7 SEE RESULT BELOW Name: DREA MORENO : [address]: Nicole Bains Acct: [id number] Unit: [id number] AGE: 51 Location: [facility] Re07/24/16 SEX: F Status: REG REF SPEC: [id number] RYLAND: 07/24/16-[address]: Nicole Bains REQ: [id number] RECD: 07/24/16 STATUS: SOUT _ ORDERED: IMAGE ANALYSIS, PAP SM PATH REV, HPV/Thin Prep COMMENTS: [id number] FINAL DIAGNOSIS EPITHELIAL CELL ABNORMALITIES Low grade squamous intraepithelial lesion (LSIL) A. Ectocervical/Endocervical Specimen Adequacy: Satisfactory of evaluation Transformation zone component identified Patient Information: HPV: High risk HPV RNA testing regardless of pap results. Actual Specimen Date: 07/24/16 LMP If Unknown: 1997 Date of Last Specimen: 11/29/15 Post Menopausal?: Y Previous Abnormal Pap Smears?:Y If Yes, enter Diagnosis: Low grade squamous intraepithelial lesion. +HPV Date Time Test Result Flag (u) Normal Range 07/24/16 1145 HPV RNA POSITIVE H Negative The high-risk HPV types detected by the assay include: 16, 18, 31, 33, 35, 39, 45, 51, 52, 56, 58, 59, 66, and 68. Signed (signature on file) Jeffy Floyd MD 1613 This Pap test was evaluated with the assistance of the SmileboxPrep Test Imaging System. Due to cytologic findings at the verification manager microscope, comprehensive manual rescreening by a Service Order Expediter may be required. The Pap Smear is a screening test designed to aid in the detection of premalignant and malignant conditions of the uterine cervix. It is not a diagnostic procedure and should not be used as the sole means of detecting cervical cancer. Both false- positive and false- negative reports do occur. Depending on your risk status, a Pap smear should be obtained and evaluated every 1-3 years. END OF REPORT * ML=Testing performed at Main Lab DEPARTMENT OF PATHOLOGY, [address] [place] [address] RUN DATE: 07/25/16 [facility] LAB LIVE PAGE 1 Patient: DREA MORENO Darío [id number] (Continued) Jeffy Floyd M.D. Director [facility] # [id number] The high-risk HPV types detected by the assay include: 16, 18, 31, 33, 35, 39, 45, 51, 52, 56, 58, 59, 66, and 68. 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 COMMENT: A p16 immunostain, with appropriately reacting controls, is positive in a patchy nuclear and cytoplasmic pattern in dysplastic squamous epithelial fragments, supporting the diagnosis. PRE-OPERATIVE DIAGNOSIS Cervical colposcopy POST-OPERATIVE DIAGNOSIS Colposcopy GROSS DESCRIPTION The specimen is received in formalin labeled, ECC, and consists of a brush- like device with an adherent 1.1 x 0.8 x 0.1 cm aggregate of clear mucus and scant soft tissue fragments. The specimen is filtered and submitted entirely in one cassette. Signed (signature on file) Namrata Zuniga MD 1500 END OF REPORT * ML=Testing performed at Main Lab DEPARTMENT OF PATHOLOGY, [address] [place] [address] Jeffy Floyd M.D. Director [facility] # [id number] SEE RESULT BELOW Name: DREA MORENO : [address]: Nicole Guerra CNP Acct: [id number] Unit: [id number] AGE: 50 Location: [facility] Re11/29/15 SEX: F Status: REG REF SPEC: [id number] RYLAND: 11/29/15-[address]: Nicole Guerra [employer] REQ: [id number] RECD: 11/30/15-1149 STATUS: SOUT _ ORDERED: IMAGE ANALYSIS, PAP SM PATH REV, HPV/Thin Prep FINAL DIAGNOSIS EPITHELIAL CELL ABNORMALITIES Low grade squamous intraepithelial lesion (LSIL) A. Ectocervical/Endocervical Specimen Adequacy: Satisfactory of evaluation Transformation zone component identified Patient Information: HPV: High risk HPV RNA testing regardless of pap results. Actual Specimen Date: 11/29/15 LMP If Unknown: 1997 Date of Last Specimen: 07/05/15 Post Menopausal?: Y Previous Abnormal Pap Smears?:Y If Yes, enter Diagnosis: Low grade squamous intraepithelial lesion, positive HPV Date Time Test Result Flag (u) Normal Range 11/29/15 1523 HPV RNA POSITIVE H Negative The high-risk HPV types detected by the assay include: 16, 18, 31, 33, 35, 39, 45, 51, 52, 56, 58, 59, 66, and 68. Signed (signature on file) Namrata Zuniga MD 3940 This Pap test was evaluated with the assistance of the ThinPrep Test Imaging System. Due to cytologic findings at the verification manager microscope, comprehensive manual rescreening by a Service Order Expediter may be required. The Pap Smear is a screening test designed to aid in the detection of premalignant and malignant conditions of the uterine cervix. It is not a diagnostic procedure and should not be used as the sole means of detecting cervical cancer. Both false- positive and false- negative reports do occur. Depending on your risk status, a Pap smear should be obtained and evaluated every 1-3 years. END OF REPORT * ML=Testing performed at Main Lab DEPARTMENT OF PATHOLOGY, [address] [place] [address] Jeffy Floyd M.D. Director [facility] # [id number] 11 The high-risk HPV types detected by the assay include: 16, 18, 31, 33, 35, 39, 45, 51, 52, 56, 58, 59, 66, and 68. 12 SEE RESULT BELOW Name: DREA MORENO : [address]: Nicole Guerra CNP Acct: [id number] Unit: [id number] AGE: 50 Location: [facility] Re07/05/15 SEX: F Status: REG REF SPEC: [id number] RYLAND: 07/05/15-[address]: Nicole Guerra [facility] REQ: [id number] RECD: 07/06/15 STATUS: SOUT _ ORDERED: IMAGE ANALYSIS, PAP SM PATH REV, HPV/Thin Prep FINAL DIAGNOSIS EPITHELIAL CELL ABNORMALITIES Low grade squamous intraepithelial lesion (LSIL) A. Ectocervical/Endocervical Specimen Adequacy: Satisfactory of evaluation Transformation zone component identified Patient Information: HPV: High risk HPV RNA testing regardless of pap results. Actual Specimen Date: 07/05/15 LMP If Unknown: 2007 Spec Date if unknown: 11/2014 Previous Abnormal Pap Smears?:N If Yes, enter Diagnosis: Low grade squamous intraepithelial lesion. HPV Positive Date Time Test Result Flag (u) Normal Range 07/05/15 1346 HPV RNA POSITIVE H Negative The high-risk HPV types detected by the assay include: 16, 18, 31, 33, 35, 39, 45, 51, 52, 56, 58, 59, 66, and 68. Signed (signature on file) Namrata Zuniga MD 12/20 0434 This Pap test was evaluated with the assistance of the ThinPrep Test Imaging System. Due to cytologic findings at the verification manager microscope, comprehensive manual rescreening by a Service Order Expediter may be required. The Pap Smear is a screening test designed to aid in the detection of premalignant and malignant conditions of the uterine cervix. It is not a diagnostic procedure and should not be used as the sole means of detecting cervical cancer. Both false- positive and false- negative reports do occur. Depending on your risk status, a Pap smear should be obtained and evaluated every 1-3 years. END OF REPORT * ML=Testing performed at Main Lab DEPARTMENT OF PATHOLOGY, [address] [place] [address] Jeffy Floyd M.D. Director [facility] # [id number] 13 The high-risk HPV types detected by the assay include: 16, 18, 31, 33, 35, 39, 45, 51, 52, 56, 58, 59, 66, and 68. 14 RUN DATE: 01/11/15 [facility] LAB LIVE PAGE 1 RUN TIME: [address] [place] [address] Specimen Inquiry Name: DREA MORENO : [address]: iPter Cuba MD Acct: [id number] Unit: [id number] AGE: 49 Location: [facility] Re01/04/15 SEX: F Status: REG REF SPEC: [id number] RYLAND: 01/04/15-1105 [facility] DR: Piter Cuba MD REQ: [id number] RECD: 01/04/15 STATUS: SOUT _ ORDERED: LEVEL IV An immunohistochemical stain for p16 with appropriate control was performed by [facility] with appropriate controls and interpreted at [facility] pathology. P16 moderate variable staining. Stain supports the above rendered diagnosis. Addendum Signed (signature on file) Jeffy Floyd MD 1604 FINAL DIAGNOSIS Uterus, endocervix, curettage: -- Low-grade squamous intraepithelial lesion (condyloma). -- Benign endocervical glandular epithelium and mucus. CLINICAL HISTORY No history given GROSS DESCRIPTION The specimen is received in formalin with no source identified and a requisition labeled, ECC, and consists of a 1.4 x 1.0 x 0.5 cm aggregate of branch-white to blood- tinged mucus admixed with scant curry branch soft tissue fragments. The specimen is filtered and submitted entirely in one cassette. Signed (signature on file) Jeffy Floyd MD 1123 END OF REPORT * ML=Testing performed at Main Lab DEPARTMENT OF PATHOLOGY, [facility] [employer] [place], [place] [address] Jeffy Floyd M.D. Director [facility] # [id number] RUN DATE: 11/30/14 [facility] LAB LIVE PAGE 1 RUN TIME: 1446 [facility] [place], [place] [address] Specimen Inquiry Name: DREA MORENO : [address]: Nicole Guerra [employer] Acct: [id number] Unit: [id number] AGE: 49 Location: [facility] Re11/26/14 SEX: F Status: REG REF SPEC: [id number] RYLAND: 11/26/14-161 [facility] DR: Nicole Guerra [employer] REQ: [id number] RECD: 11/27/14-9117 STATUS: SOUT _ ORDERED: IMAGE ANALYSIS, PAP SM PATH REV, HPV/Thin Prep FINAL DIAGNOSIS EPITHELIAL CELL ABNORMALITIES Low grade squamous intraepithelial lesion (LSIL) Shift in polly suggestive of bacterial vaginosis A. Ectocervical/Endocervical Specimen Adequacy: Satisfactory of evaluation Transformation zone component identified Patient Information: HPV: High risk HPV RNA testing regardless of pap results. Actual Specimen Date: 11/26/14 LMP If Unknown: 2007 Date of Last Specimen: 12/18/13 Post Menopausal?: Y Previous Abnormal Pap Smears?:Y If Yes, enter Diagnosis: +HPV Date Time Test Result Flag (u) Normal Range 11/26/14 1611 HPV RNA Positive H Negative The high-risk HPV types detected by the assay include: 16, 18, 31, 33, 35, 39, 45, 51, 52, 56, 58, 59, 66, and 68. Signed (signature on file) Jeffy Floyd MD 1446 This Pap test was evaluated with the assistance of the SmileboxPrep Test Imaging System. Due to cytologic findings at the verification manager microscope, comprehensive manual rescreening by a Service Order Expediter may be required. The Pap Smear is a screening test designed to aid in the detection of premalignant and malignant conditions of the uterine cervix. It is not a diagnostic procedure and should not be used as the sole means of detecting cervical cancer. Both false- positive and false- negative reports do occur. Depending on your risk status, a Pap smear should be obtained and evaluated every 1-3 years. END OF REPORT * ML=Testing performed at Main Lab DEPARTMENT OF PATHOLOGY, [facility] [employer] [place], [place] [address] Jeffy Floyd M.D. Director [facility] # [id number] RUN DATE: 11/30/14 [facility] LAB LIVE PAGE 1 RUN TIME: 2012 [facility] [place], [place] [address] Specimen Inquiry Patient: DREA MORENO [id number] (Continued) 16 The high-risk HPV types detected by the assay include: 16, 18, 31, 33, 35, 39, 45, 51, 52, 56, 58, 59, 66, and 68. 17 RUN DATE: 12/19/13 [facility] LAB LIVE PAGE 1 RUN TIME: 4223 [facility] [place], [place] [address] Specimen Inquiry Name: DREA MORENO : [address]: Nicole Guerra [employer] Acct: [id number] Unit: [id number] AGE: 48 Location: [facility] Re12/18/13 SEX: F Status: REG REF SPEC: [id number] RYLAND: 12/18/13-[address]: Nicole Guerra [employer] REQ: [id number] RECD: 12/18/13-1814 STATUS: SOUT _ ORDERED: IMAGE ANALYSIS, PAP SM PATH REV, HPV/Thin Prep FINAL DIAGNOSIS Negative for Intraepithelial lesion or Malignancy Reactive cellular changes associated with Inflammation (includes typical repair) Shift in polly suggestive of bacterial vaginosis COMMENTS: Specimen sent to [facility] in [place], [place] on 12/19/13 by [id number] at 1136. Results will be reported separately. A. Ectocervical/Endocervical Specimen Adequacy: Satisfactory of evaluation Transformation zone component identified Predominance of white blood cells Patient Information: HPV: High risk HPV DNA testing regardless of pap results. Actual Specimen Date: 12/18/13 LMP If Unknown: 2007 Date of Last Specimen: 05/14/13 Post Menopausal?: Y Previous Abnormal Pap Smears?:Y If Yes, enter Diagnosis: Low grade squamous intraepithelial lesion. +HPV Signed (signature on file) Jeffy Floyd MD 6557 This Pap test was evaluated with the assistance of the ThinPrep Test Imaging System. Due to cytologic findings at the verification manager microscope, comprehensive manual rescreening by a Service Order Expediter may be required. The Pap Smear is a screening test designed to aid in the detection of premalignant and malignant conditions of the uterine cervix. It is not a diagnostic procedure and should not be used as the sole means of detecting cervical cancer. Both false- positive and false- negative reports do occur. Depending on your risk status, a Pap smear shoudl be obtained and evaluated every 1-3 years. END OF REPORT * ML=Testing performed at Main Lab DEPARTMENT OF PATHOLOGY, [facility] [employer] [place], [place] [address] RUN DATE: 12/19/13 [facility] LAB LIVE PAGE 1 RUN TIME: 1636 [facility] [place], [place] [address] Specimen Inquiry Patient: ORTEGA MORENOMANUEL Chanel [id number] (Continued) Jeffy Floyd M.D. Director [facility] Permit #[id number] Positive for one or more of the following Other High Risk HPV types: 31, 33, 35, 39, 45, 51, 52, 56, 58, 59, 66, and 68 Test Performed by: [address] [address] [employer] Director: Anirudh Amaya III, M.D. 19 It is recognized that currently available assays for the detection of antibodies to HIV-1 and/or HIV-2 may not detect all infected individuals. HIV antibodies may be undetectable in some stages of the infection and in some clinical conditions. The performance of this assay has not been established for populations of infants or children. Assayed by Chemiluminescence Microparticle Immunoassay on the Siemens Advia Centaur CP. Values obtained with different methods or kits cannot be used interchangeably.The diagnostic specificity of the ADVIA Centaur 1/O/2 Enhanced assay in the low risk population was 99.90% (6052/6058) with a 95% confidence interval of 99.78 to 99.96%. 20 Warning: A positive result is not useful for establishing a diagnosis of syphilis. In most situations, such a result may reflect a prior treated infection; a negative result can exclude a diagnosis of syphilis except for incubating or early primary disease. 21 RUN DATE: 05/30/13 [facility] LAB LIVE PAGE 1 RUN TIME: [address] [place] [address] Specimen Inquiry Name: DREA MORENO : [address]: Nicole Guerra CNP Acct: [id number] Unit: [id number] AGE: 48 Location: [facility] Re05/27/13 SEX: F Status: REG REF SPEC: [id number] RYLAND: 05/27/13-[address]: Nicole Guerar CNP REQ: [id number] RECD: 05/27/138 STATUS: COMP _ SOURCE: ENDOCERVIX SPDES: ORDERED: GC/Chlam RNA QUERIES: Medent Number [id number] Procedure Result Verified Site Chlamydia Trachomatis RNA Final 05/30/13- 1421 ML NEGATIVE for Chlamydia trachomatis rRNA GC (N. gonorrhoeae) RNA Final 05/30/13- 1416 ML NEGATIVE for Neisseria gonorrhoeae rRNA A negative result does not preclude the presence of a C. trachomatis or N. gonorrhoeae infection because results are dependent on adequate specimen collection, absence of inhibitors, and sufficient rRNA to be detected. Test results may be affected by improper specimen collection, improper storage, technical error, or specimen mixup. Limitations of the Procedure: The Aptima Combo 2 Assay is not intended for the evaluation of suspected sexual abuse or for other medico-legal indications. For those patients for whom a false positive result may have adverse psychosocial impact, the [facility] recommends retesting by a method using an alternate technology. Therapeutic failure or success cannot be determined with the Aptima Combo 2 Assay since nucleic acid may persist following appropriate antimicrobial therapy. Results from the Aptima Combo 2 Assay should be interpreted in conjunction with other laboratory and clinical data available to the clinican. CONTINUED ON NEXT PAGE * ML=Testing performed at Main Lab DEPARTMENT OF PATHOLOGY, [facility] [employer] [place], [place] [address] Jeffy Floyd M.D. Director [facility] Permit #[id number] RUN DATE: 05/30/13 [facility] LAB LIVE PAGE 2 RUN TIME: 142 [facility] [place], [place] [address] Specimen Inquiry Patient: DREA MORENO [id number] (Continued) Specimen: [id number] Collected: 05/27/13-1052 Received: 05/27/13-161 (Continued) Procedure Result Verified Site GC (N. gonorrhoeae) RNA Final (continued) 05/30/13- 1416 Performance characteristics for detecting C. trachomatis and N. gonorrhoeae are derived from high prevalence populations. Positive results in low prevalence populations should be interpreted carefully with the understanding that the likelihood of a false positive may be higher than a true positive. END OF REPORT * ML=Testing performed at Main Lab DEPARTMENT OF PATHOLOGY, [address] [place] [address] Jeffy Floyd M.D. Director [facility] Permit #[id number] RUN DATE: 05/29/13 [facility] LAB LIVE PAGE 1 RUN TIME: [address] [place] [address] Specimen Inquiry Name: DREA MORENO : [address]: Nicole Guerra CNP Acct: [id number] Unit: [id number] AGE: 48 Location: [facility] Re05/27/13 SEX: F Status: REG REF SPEC: [id number] RYLAND: 05/27/13-[address]: Nicole Guerra CNP REQ: [id number] RECD: 05/27/13 STATUS: COMP _ SOURCE: VAGINAL SPDESC: ORDERED: Genital Culture QUERIES: Med[employer] Number [id number] Procedure Result Verified Site Genital Culture Final 05/29/13- 1136 ML Organism 1 STREP GROUP B Quantity 3+ Susceptibility testing of penicillins and other B-lactams approved by FDA for treatment of Streptococcus pyogenes (Group A Strep) and Streptococcus agalactiae (Group B Strep) is not necessary for clinical purposes and need not be done routinely, since as with vancomycin, resistant strains have not been recognized. (CLSI B917-X05;p.66) Positive isolates will be saved for one week. Please call the Microbiology Laboratory if further susceptibility testing is needed. END OF REPORT * ML=Testing performed at Main Lab DEPARTMENT OF PATHOLOGY, [facility] [place], [place] [address] Jeffy Floyd M.D. Director [facility] Permit #[id number] RESULT: Ectocervical/Endocervical 24 For one or more of types 16, 18, 31, 33, 35, 39, 45, 51, 52, 56, 58, 59 and 68. These high/intermediate risk HPV types are associated with dysplasia and some cervical cancers. Test Performed by: [address] [address] [employer] Director: Anirudh Amaya III, M.D. 25 RUN DATE: 05/15/13 [facility] LAB LIVE PAGE 1 RUN TIME: 001 [facility] [place], [place] [address] Specimen Inquiry Name: DREA MORENO : [address]: Nicole Guerra CNP Acct: [id number] Unit: [id number] AGE: 48 Location: LAB Re05/14/13 SEX: F Status: REG REF SPEC: [id number] RYLAND: 05/14/13-[address]: Nicole Guerra [employer] REQ: [id number] RECD: 05/14/13-1603 STATUS: SOUT _ ORDERED: IMAGE ANALYSIS, PAP SM PATH REV, HPV / Thin Prep FINAL DIAGNOSIS EPITHELIAL CELL ABNORMALITIES Low grade squamous intraepithelial lesion (LSIL) COMMENTS: Specimen sent to [facility] in [place], [place] on 05/15/13 by [id number] at 1018. Results will be reported separately. Consider Colposcopy if clinically indicated. A. Ectocervical/Endocervical Specimen Adequacy: Satisfactory of evaluation Transformation zone component identified Patient Information: HPV: High risk HPV DNA testing regardless of pap results. Actual Specimen Date: 05/14/13 LMP If Unknown: 2007 Post Menopausal?: Y Signed (signature on file) Jeffy Floyd MD 6235 This Pap test was evaluated with the assistance of the SmileboxPrep Test Imaging System. Due to cytologic findings at the verification manager microscope, comprehensive manual rescreening by a Service Order Expediter may be required. The Pap Smear is a screening test designed to aid in the detection of premalignant and malignant conditions of the uterine cervix. It is not a diagnostic procedure and should not be used as the sole means of detecting cervical cancer. Both false- positive and false- negative reports do occur. Depending on your risk status, a Pap smear shoudl be obtained and evaluated every 1-3 years. END OF REPORT * ML=Testing performed at Main Lab DEPARTMENT OF PATHOLOGY, [facility] [employer] [place], [place] [address] Jeffy Floyd M.D. Director [facility] Permit #[id number] RUN DATE: 02/05/13 [facility] LAB LIVE PAGE 1 RUN TIME: [address] [place] [address] Specimen Inquiry Name: DREA MORENO : [address]: Piter Cuba MD Acct: [id number] Unit: [id number] AGE: 47 Location: [facility] Re02/03/13 SEX: F Status: REG REF SPEC: [id number] RY[place]: 02/03/13-1455 [facility] DR: Piter Cuba MD REQ: [id number] RECD: 02/04/13 STATUS: SOUT _ ORDERED: LEVEL IV, LEVEL V FINAL DIAGNOSIS 1) Uterus, cervix, LEEP excision: A. Focal low grade squamous intraepithelial lesion (mild dysplasia with HPV effect). B. Low grade dysplasia involves endocervical gland neck. C. Cauterized margins of resection are clear of dysplasia. 2) Endocervix, curettage: A. Benign endocervical glandular epithelium and inflamed mucus. PRE-OPERATIVE DIAGNOSIS Low grade squamous intraepithelial lesion. GROSS DESCRIPTION 1) The specimen is received in formalin labeled Drea Moreno Cervical LEEP and consists of a LEEP excision specimen measuring 1.4 x 1.6 x 1.0 cm. The cauterized margin is inked black. The specimen is radially sectioned and submitted entirely in A and B. 2) The specimen is received in formalin labeled Drea Moreno ECC and consists of a curry, mucoid fragment measuring 1.0 x 0.9 x 0.5 cm. Submitted entirely, one cassette. Signed (signature on file) Jeffy Floyd MD 1406 END OF REPORT * ML=Testing performed at Main Lab DEPARTMENT OF PATHOLOGY, [facility] [employer] [place], [place] [address] Jeffy Floyd M.D. Director [facility] Permit #[id number] RUN DATE: 11/27/12 [facility] LAB LIVE PAGE 1 RUN TIME: 1420 [facility] [place], [place] [address] Specimen Inquiry Name: DREA MORENO : [address]: Piter Cuba MD Acct: [id number] Unit: [id number] AGE: 47 Location: [facility] Re11/25/12 SEX: F Status: REG REF SPEC: [id number] [place]: 11/25/12-1056 [facility] DR: Piter Cuba MD REQ: [id number] RECD: 11/26/12 STATUS: SOUT _ ORDERED: LEVEL IV/2 FINAL DIAGNOSIS 1. Uterus, cervix, biopsy: Focal low grade squamous intraepithelial lesion (condyloma). 2. Uterus, endocervix, curettage: Benign endocervical glandular mucosal fragments and inflamed mucus. PRE-OPERATIVE DIAGNOSIS Low grade squamous intraepithelial lesion. GROSS DESCRIPTION 1. The specimen is received in formalin labelled Dreamanuel Moreno, Cervix Biopsy, and consists of a curry, soft tissue fragment measuring 0.7 x 0.3 x 0.2 cm. Submitted entirely, one cassette. 2. The specimen is received in formalin labelled Dreamanuel Guillaumeall, ECC, and consists of multiple curry, mucoid, soft tissue fragments measuring 2.4 x 1.6 cm. by up to 0.6 cm. Submitted entirely, one cassette. Signed (signature on file) Jeffy Floyd MD 1420 END OF REPORT * ML=Testing performed at Main Lab DEPARTMENT OF PATHOLOGY, [facility] [employer] [place], [place] [address] Jeffy Floyd M.D. Director [facility] Permit #[id number] RUN DATE: 11/18/12 [facility] LAB LIVE PAGE 1 RUN TIME: 4021 [facility] [place], [place] [address] Specimen Inquiry Name: DREA MORENO : [address]: Nicole Guerra CNP Acct: [id number] Unit: [id number] AGE: 47 Location: [facility] Re11/15/12 SEX: F Status: REG REF SPEC: [id number] RYLAND: 11/15/12-[address]: Nicole Guerra CNP REQ: [id number] RECD: 11/18/12 STATUS: SOUT _ ORDERED: IMAGE ANALYSIS, PAP SM PATH REV FINAL DIAGNOSIS EPITHELIAL CELL ABNORMALITIES Low grade squamous intraepithelial lesion (LSIL) COMMENTS: Consider Colposcopy if clinically indicated. A. Ectocervical/Endocervical Specimen Adequacy: Satisfactory of evaluation Transformation zone component identified Patient Information: HPV: Thin Layer Pap Test w/reflex to high risk HPV DNA testing when ASCUS Actual Specimen Date: 11/15/12 LMP If Unknown: 2008 Previous Abnormal Pap Smears?:Y If Yes, enter Diagnosis: Low grade squamous intraepithelial lesion. Signed (signature on file) Jeffy Floyd MD 1535 This Pap test was evaluated with the assistance of the SmileboxPrep Test Imaging System. Due to cytologic findings at the verification manager microscope, comprehensive manual rescreening by a Service Order Expediter may be required. The Pap Smear is a screening test designed to aid in the detection of premalignant and malignant conditions of the uterine cervix. It is not a diagnostic procedure and should not be used as the sole means of detecting cervical cancer. Both false- positive and false- negative reports do occur. Depending on your risk status, a Pap smear shoudl be obtained and evaluated every 1-3 years. END OF REPORT * ML=Testing performed at Main Lab DEPARTMENT OF PATHOLOGY, [address] [place] [address] Jeffy Floyd M.D. [facility] Permit #[id number] 29 ---- RUN DATE: 04/30/12 [facility] NMI LIVE PAGE 1 RUN TIME: 1240 Specimen Inquiry RUN USER: INTERFACE -- Name: ORTEGA MORENOMANUEL Chanel Status: REG REF Re04/29/12 Age/Sex: 47/F Unit#: [id number] Location: [facility] : 61 -- Specimen: [id number] SOUT Spec Date:04/29/12-[address] [facility] [address]: Nicole gonzalez CNP Spec Type: CYTOLOGY Received:04/30/123840 Copies to: SOURCE ECTOCERVICAL/ENDOCERVICAL Thin Prep with Reflex HPV Test PATIENT INFORMATION ACTUAL COLLECTION DATE: 04/29/12 PREVIOUS ABNORMAL PAP SMEARS Yes If YES, diagnosis: Low grade squamous intraepithelial lesion. PATIENT HISTORY: Last menstrual period 2007 ADEQUACY OF SPECIMEN Satisfactory for evaluation * Transformation zone component identified * DIAGNOSIS EPITHELIAL CELL ABNORMALITIES * Low grade squamous intraepithelial lesion (LSIL) encompassing: * HPV/mild dysplasia/JUAN J 1 * SUGGESTIONS Consider colposcopy, if clinically indicated * This Pap test was evaluated with the assistance of the SmileboxPrep Pap Test Imaging System. Due to cytologic findings at the verification manager microscope, comprehensive manual rescreening by a Service Order Expediter was required. The Pap Smear is a screening test designed to aid in the detection of premalign ant and malignant conditions of the uterine cervix. It is not a diagnostic procedure a nd should not be used as the sole means of detecting cervical cancer. Both false- positiv e and false-negative reports do occur. Depending on your risk status, a Pap smear angélica uld be obtained and evaluated every one to three years. -- DEPARTMENT OF PATHOLOGY, [address] [place] [address] [facility] Permit #[id number] Melina Mayes M.D. Assistant Dir gustavo -- -- RUN DATE: 04/30/12 [facility] NMI LIVE PAGE 2 RUN TIME: 1240 Specimen Inquiry RUN USER: INTERFACE -- Name: DREA MORENO Status: REG REF Re04/29/12 Age/Sex: 47/F Unit#: [id number] Location: [facility] : 61 -- -- CONTINUED -- Initial evaluation performed by Xi GUSTAFSON([facility]) 04/30/12 Final Interpretation electronically signed by: SELWYN BOLES 04/30/12 1240 -- -- DEPARTMENT OF PATHOLOGY, [address] [place] [address] [facility] Permit #[id number] Jeffy Floyd M.D. Director Melina Vieira -- 28 ---- RUN DATE: 09/26/11 [facility] NMI LIVE PAGE 1 RUN TIME: 1318 Specimen Inquiry RUN USER: INTERFACE -- Name: DREA MORENO Status: REG REF Re09/22/11 Age/Sex: 46/F Unit#: [id number] Location: [facility] : 61 -- [id number] [facility] Spec Date: 09/22/[address] [facility] [address]: Piter umana MD Spec Type: SURGICAL P Received: 09/25/11 Copies to: CYTOLOGY SPECIMEN ENDOCERVICAL CURETTINGS HISTORY PRE-OP DIAGNOSIS: Low grade squamous intraepithelial lesion. GROSS DESCRIPTION The specimen is received in formalin labelled LUCIANO Rosas, and consists of mucoid fragments of brown tissue measuring in aggregate 1.5 x 1.4 x 1.0 cm. The specimen is filtered and submitted entirely in one cassette. DIAGNOSIS Uterus, endocervical curettings: Predominantly mucus and rare disaggregated fragments of endocervical glands. Signed Electronically by: SELWYN BOLES 09/26/11 4806 -- -- DEPARTMENT OF PATHOLOGY, [address] [place] [address] [facility] Permit #[id number] Melina Mayes M.D. [employer] Cutting Machine Feeder gustavo -- 29 ---- RUN DATE: 08/22/11 [facility] NMI LIVE PAGE 1 RUN TIME: 1520 Specimen Inquiry RUN USER: INTERFACE -- Name: DREA MORENO Status: REG REF Re08/21/11 Age/Sex: 46/F Unit#: [id number] Location: [facility] : 61 -- Specimen: [id number] SOUT Spec Date: 08/21/[address] [facility] [address]: Nicole Pacheco mp AIRPLANE PILOT CROP DUSTING Spec Type: CYTOLOGY Received: 08/22/11 Copies to: SOURCE ECTOCERVICAL/ENDOCERVICAL Thin Prep with Reflex HPV Test PATIENT INFORMATION ACTUAL COLLECTION DATE: 08/21/11 POST MENOPAUSAL? Yes DATE OF PRIOR SPECIMEN: 03/06/11 PATIENT HISTORY: Last menstrual period 2007 ADEQUACY OF SPECIMEN Satisfactory for evaluation * Transformation zone component identified * DIAGNOSIS EPITHELIAL CELL ABNORMALITIES * Low grade squamous intraepithelial lesion (LSIL) encompassing: * HPV/mild dysplasia/JUAN J 1 * SUGGESTIONS Consider colposcopy, if clinically indicated * This Pap test was evaluated with the assistance of the SmileboxPrep Pap Test Imaging System. Due to cytologic findings at the verification manager microscope, comprehensive manual rescreening by a Service Order Expediter was required. The Pap Smear is a screening test designed to aid in the detection of premalign ant and malignant conditions of the uterine cervix. It is not a diagnostic procedure a nd should not be used as the sole means of detecting cervical cancer. Both false- positiv e and false-negative reports do occur. Depending on your risk status, a Pap smear angélica uld be obtained and evaluated every one to three years. -- DEPARTMENT OF PATHOLOGY, [address] [place] [address] [facility] Permit #[id number] Melina Mayes M.D. [employer] Cutting Machine Feeder Dir gustavo -- -- RUN DATE: 08/22/11 [facility] NMI LIVE PAGE 2 RUN TIME: 1520 Specimen Inquiry RUN USER: INTERFACE -- Name: JOSHDREA M Status: REG REF Re08/21/11 Age/Sex: 46/F Unit#: [id number] Location: [facility] : 61 -- -- CONTINUED -- Initial evaluation performed by Apolinar ALVAREZ([facility]) 08/22/11 Final Interpretation electronically signed by: SELWYN BOLES 08/22/11 1520 -- -- DEPARTMENT OF PATHOLOGY, [address] [place] [address] [facility] Permit #[id number] Jeffy Floyd M.D. Director Selwyn Boles M.D. [employer] Cutting Machine Feeder Dir gustavo -- 30 ---- RUN DATE: 03/07/11 [facility] NMI LIVE PAGE 1 RUN TIME: 1526 Specimen Inquiry RUN USER: INTERFACE -- Name: DREA MORENO Status: REG REF Re03/06/11 Age/Sex: 45/F Unit#: [id number] Location: [facility] : 61 -- Specimen: [id number] SOUT Spec Date: 03/06/[address] [facility] [address]: Nicole Pacheco mp AIRPLANE PILOT CROP DUSTING Spec Type: CYTOLOGY Received: 03/07/11 Copies to: SOURCE ECTOCERVICAL/ENDOCERVICAL Thin Prep with Reflex HPV Test PATIENT INFORMATION ACTUAL COLLECTION DATE: 03/06/11 ? No POST MENOPAUSAL? Yes PREVIOUS ABNORMAL PAP SMEARS Yes If YES, diagnosis: Low grade squamous intraepithelial lesion. DATE OF PRIOR SPECIMEN: 08/18/10 ADEQUACY OF SPECIMEN Satisfactory for evaluation * Transformation zone component identified * DIAGNOSIS EPITHELIAL CELL ABNORMALITIES * Low grade squamous intraepithelial lesion (LSIL) encompassing: * HPV/mild dysplasia/JUAN J 1 * SUGGESTIONS Consider colposcopy with endocervical assessment and endometrial sampling if >35 years or abnormal bleeding, if clinically indicated * This Pap test was evaluated with the assistance of the ThinPrep Pap Test Imaging System. Due to cytologic findings at the verification manager microscope, comprehensive manual rescreening by a Service Order Expediter was required. -- DEPARTMENT OF PATHOLOGY, [address] [place] [address] [facility] Permit #[id number] Melina Mayes M.D. [employer] Cutting Machine Feeder Dir gustavo -- -- RUN DATE: 03/07/11 [facility] NMI LIVE PAGE 2 RUN TIME: 1526 Specimen Inquiry RUN USER: INTERFACE -- Name: DREA MORENO Status: REG REF Re03/06/11 Age/Sex: 45/F Unit#: [id number] Location: [facility] : 61 -- -- CONTINUED -- The Pap Smear is a screening test designed to aid in the detection of premalign ant and malignant conditions of the uterine cervix. It is not a diagnostic procedure a nd should not be used as the sole means of detecting cervical cancer. Both false- positiv e and false-negative reports do occur. Depending on your risk status, a Pap smear angélica uld be obtained and evaluated every one to three years. Initial evaluation performed by Xi GUSTAFSON([facility]) 03/07/11 Final Interpretation electronically signed by: SELWYN BOLES 03/07/11 1526 -- -- DEPARTMENT OF PATHOLOGY, [address] [place] [address] [facility] Permit #[id number] Melina Mayes M.D. Assistant Dir gustavo -- 31 ---- RUN DATE: 08/31/10 [facility] NMI LIVE PAGE 1 RUN TIME: 1538 Specimen Inquiry RUN USER: INTERFACE -- Name: DREA MORENO Status: REG REF Re08/29/10 Age/Sex: 45/F Unit#: [id number] Location: [facility] : 61 -- Specimen: [id number] ANDRES Spec Date: 08/29/[address]: Sarita wright MD Spec Type: SURGICAL P Received: 08/30/10-0910 Copies to: CYTOLOGY SPECIMEN 1) CERVICAL BIOPSY 2) ENDOCERVICAL CURETTINGS HISTORY PRE-OP DIAGNOSIS: Low grade squamous intraepithelial lesion, positive hum an papilloma virus GROSS DESCRIPTION 1) The specimen is received in formalin labelled Drea Moreno, Cervical Biopsy, and consists of several fragments of mucoid tissue measuring in aggregate 1.0 x 0.8 x 0.3 cm. The specimen is filtered and submitted entirely in one cassette labelled 1. 2) The specimen is received in formalin labelled Drea Moreno, ECC, and consists of a few minute fragments of tissue measuring in aggregate 0.2 x 0.2 x 0.1 cm. The specimen is filtered and submitted entirely in one cassette labelled 2. DIAGNOSIS 1) Uterus, cervical biopsy: A. Ecto endocervical mucosa with no evidence of low grade squamous intraepithelial lesion as demonstrated by P16 immunohistochemical stain. B. Benign endocervical glands. C. Acute and chronic inflammation. 2) Uterus, endocervical curettings: Scant fragments of benign endocervical glands (see comment). COMMENT The patient's previous Pap smears was reviewed ([id number]) and shows definitive evidence of low grade dysplasia. Signed Electronically by: SELWYN BOLES 08/31/10 1538 -- DEPARTMENT OF PATHOLOGY, [address] [place] [address] [facility] Permit #[id number] Melina Mayes M.D. Assistant Dir ector -- 32 ---- RUN DATE: 08/19/10 [facility] NMI LIVE PAGE 1 RUN TIME: 1245 Specimen Inquiry RUN USER: INTERFACE -- Name: DREA MORENO Accbarbara#: [id number] Status: REG REF Re08/18/10 Age/Sex: 45/F Unit#: [id number] Location: [facility] : 61 -- Specimen: [id number] SOUT Spec Date: 08/18/[address]: Nicole Pacheco mp AIRPLANE PILOT CROP DUSTING Spec Type: CYTOLOGY Received: 08/19/10-1008 Copies to: SOURCE ECTOCERVICAL/ENDOCERVICAL Thin Prep with Reflex HPV Test PATIENT INFORMATION ACTUAL COLLECTION DATE: 08/18/10 DATE OF PRIOR SPECIMEN: 06/21/10 PATIENT HISTORY: Last menstrual period 2007 ADEQUACY OF SPECIMEN Satisfactory for evaluation * Transformation zone component identified * DIAGNOSIS EPITHELIAL CELL ABNORMALITIES * Low grade squamous intraepithelial lesion (LSIL) encompassing: * HPV/mild dysplasia/JUAN J 1 * SUGGESTIONS Consider colposcopy with endocervical assessment and endometrial sampling if >35 years or abnormal bleeding, if clinically indicated * This Pap test was evaluated with the assistance of the Ofuz Pap Test Imaging System. Due to cytologic findings at the verification manager microscope, comprehensive manual rescreening by a Service Order Expediter was required. The Pap Smear is a screening test designed to aid in the detection of premalign ant and malignant conditions of the uterine cervix. It is not a diagnostic procedure a nd should not be used as the sole means of detecting cervical cancer. Both false- positiv e and false-negative reports do occur. Depending on your risk status, a Pap smear angélica uld be obtained and evaluated every one to three years. -- DEPARTMENT OF PATHOLOGY, [address] [place] [address] [facility] Permit #[id number] Jeffy Floyd M.D. Director Selwyn Boles M.D. Rag Cutting Machine Feeder Dir gusatvo -- -- RUN DATE: 08/19/10 [facility] NMI LIVE PAGE 2 RUN TIME: 1245 Specimen Inquiry RUN USER: INTERFACE -- Name: DREA MORENO Status: REG REF Re08/18/10 Age/Sex: 45/F Unit#: [id number] Location: [facility] : 61 -- -- CONTINUED -- Initial evaluation performed by Xi GUSTAFSON([facility]) 08/19/10 Final Interpretation electronically signed by: SELWYN BOLES 08/19/10 1245 -- -- DEPARTMENT OF PATHOLOGY, [address] [place] [address] [facility] Permit #[id number] Melina Mayes M.D. [employer] Cut[employer] Machine Feeder Dir gustavo -- 33 ---- RUN DATE: 06/22/09 [facility] NMI LIVE PAGE 1 RUN TIME: 1510 Specimen Inquiry RUN USER: INTERFACE -- [id number] Status: REG REF Re06/21/09 Age/Sex: 44/F Unit#: [id number] Location: [facility] : 61 -- Specimen: [id number] [facility] Spec Date: 06/[facility]/[address] [facility] [address]: Claire vera [facility] Spec Type: CYTOLOGY Received: 06/22/09-1143 Copies to: SOURCE ECTOCERVICAL/ENDOCERVICAL Thin Prep with Reflex HPV Test PATIENT INFORMATION ACTUAL COLLECTION DATE: 06/21/09 POST MENOPAUSAL? Yes PREVIOUS ABNORMAL PAP SMEARS No DATE OF PRIOR SPECIMEN: 06/12/08 PATIENT HISTORY: Last menstrual period approx: 04/11 ADEQUACY OF SPECIMEN Satisfactory for evaluation * Transformation zone component identified * DIAGNOSIS NEGATIVE FOR INTRAEPITHELIAL LESION OR MALIGNANCY * This Pap test was evaluated with the assistance of the SmileboxPrep Pap Test Imaging System. The Pap Smear is a screening test designed to aid in the detection of premalign ant and malignant conditions of the uterine cervix. It is not a diagnostic procedure a nd should not be used as the sole means of detecting cervical cancer. Both false- positiv e and false-negative reports do occur. Depending on your risk status, a Pap smear angélica uld be obtained and evaluated every one to three years. Initial evaluation performed by Apolinar ALVAREZ([facility]) 06/22/09 Final Interpretation electronically signed by: Apolinar ALVAREZ([facility]) 06/22/09 1509 -- -- DEPARTMENT OF PATHOLOGY, [address] [place] [address] [facility] Permit #[id number] Melina Mayes M.D. Rag Cutting Machine Feeder Dir chen -- 34 ---- RUN DATE: 06/15/08 [facility] NMI LIVE PAGE 1 RUN TIME: 1529 Specimen Inquiry RUN USER: INTERFACE -- Name: DREA MORENO Status: REG REF Re06/12/08 Age/Sex: 43/F Unit#: [id number] Location: [facility] : 61 -- Specimen: [id number] ANDRES Spec Date: 06/12/[address]: Claire vera [facility] Spec Type: CYTOLOGY Received: 06/15/08142 Copies to: SOURCE ECTOCERVICAL/ENDOCERVICAL Thin Prep with Reflex HPV Test PATIENT INFORMATION ACTUAL COLLECTION DATE: 06/12/08 PREVIOUS ABNORMAL PAP SMEARS No DATE OF PRIOR SPECIMEN: 06/13/07 ADEQUACY OF SPECIMEN Satisfactory for evaluation * Transformation zone component identified * DIAGNOSIS NEGATIVE FOR INTRAEPITHELIAL LESION OR MALIGNANCY * This Pap test was evaluated with the assistance of the ThinPrep Pap Test Imaging System. The Pap Smear is a screening test designed to aid in the detection of premalign ant and malignant conditions of the uterine cervix. It is not a diagnostic procedure a nd should not be used as the sole means of detecting cervical cancer. Both false- positive and false-negative reports do occur. Depending on your risk status, a Pap smear angélica uld be obtained and evaluated every one to three years. Final Interpretation electronically signed by: Apolinar ALVAREZ([facility]) 06/15/08 1529 -- -- DEPARTMENT OF PATHOLOGY, [address] [place] [address] [facility] Permit #[id number] Jeffy Floyd M.D. Director of Laboratories -- 37 NORMAL RANGE MALES 1 - 20 NORMALLY MENSTRUATING FEMALES - Follicular Phase 3 - 9 - Mid-Cycle Peak 4 - 23 - Luteal Phase 1 - 6 POSTMENOPAUSAL FEMALES 16 - 114 . 38 ---- RUN DATE: 06/17/07 [facility] NMI LIVE PAGE 1 RUN TIME: 1412 Specimen Inquiry RUN USER: INTERFACE [id number] DREA MORENO 42/F <REG REF 06/12> ([id number]) Jasmeet Wallace CNM -- Specimen: [id number] SOUT Spec Date: 06/12/[address]: Claire vera CNM Spec Type: CYTOLOGY Received: 06/13/07-1438 Copies to: SOURCE ECTOCERVICAL/ENDOCERVICAL Thin Prep with Reflex HPV Test PATIENT INFORMATION ACTUAL COLLECTION DATE: 06/12/07 PREVIOUS ABNORMAL PAP SMEARS No PATIENT HISTORY: Prior 12/2005, Unknown ADEQUACY OF SPECIMEN Satisfactory for evaluation * Transformation zone component identified * DIAGNOSIS NEGATIVE FOR INTRAEPITHELIAL LESION OR MALIGNANCY * This Pap test was evaluated with the assistance of the ThinPrep Pap Test Imaging System. The Pap Smear is a screening test designed to aid in the detection of premalign ant and malignant conditions of the uterine cervix. It is not a diagnostic procedure a nd should not be used as the sole means of detecting cervical cancer. Both false- positive and false-negative reports do occur. Depending on your risk status, a Pap smear angélica uld be obtained and evaluated every one to three years. Final Interpretation electronically signed by: Xi GUSTAFSON([facility]) 06/17/07 141 2 -- -- DEPARTMENT OF PATHOLOGY, [address] [place] [address] [facility] Permit #[id number] Quique Alcala II, M.D. Director Melina Mayes -- Procedures Date Code Description Status 12/03/2018 12818 Colposcopy W/Loop Electrode Biopsy Of The Cervix Completed 05/31/2018 [id number] Mammogram Completed 04/25/2017 26823 Colposcopy W/Biopsy Cervix/Endocervical Curettage Completed 12/27/2015 15978 Colposcopy W/Biopsy Cervix/Endocervical Curettage Completed 07/06/2015 [id number] Colonoscopy Completed 01/04/2015 06424 Colposcopy W/Biopsy Cervix/Endocervical Curettage Completed 02/03/2013 24541 Colposcopy W/Loop Electrode Biopsy Of The Cervix Completed 11/25/2012 49937 Colposcopy W/Biopsy Cervix/Endocervical Curettage Completed 09/22/2011 12984 Colposcopy W/Biopsy Cervix/Endocervical Curettage Completed 08/29/2010 53799 Colposcopy W/Biopsy Cervix/Endocervical Curettage Completed Encounters Type Date Location Provider Dx Diagnosis Office Visit 01/15/2019 [facility] Mya Servin, R87.612 Low grade intrepith 10:20a MD lesion cyto smr crvx (LGSIL) Office Visit 10/10/2018 [facility] ANTELMO Lazo Z87.410 Personal history of 11:20a cervical dysplasia Office Visit 03/18/2018 [facility] Piter Cuba, Z87.410 Personal history of 2:40p M.D. cervical dysplasia Office Visit 04/25/2017 [facility] Piter Cuba, N34.1 Nonspecific 3:00p M.D. 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 (general) (routine) w/o abn findings Office Visit 07/05/2015 1:20p [facility] Office Nicole Guerra V76.2 Screening ANP-Herson Malignant Neoplasm Cervix V13.22 Personal HX Of Cervical Dysplasia Office Visit 03/22/2015 11:00a [facility] Office Piter Tobin 622.10 Dysplasia Of Cervix Melina Cuba NOS Office Visit 11/26/2014 3:40p [facility] Nicole Guerra, V72.31 Routine Rn Endocrinology ANP-C Examination V76.2 Screening Malignant Neoplasm Cervix 627.2 Menopausal Or Female Climacteric State, Symptomatic Office Visit 01/02/2014 11:20a [facility] Nicole Guerra, 788.1 Dysuria ANP-C Office Visit 12/18/2013 11:20a [facility] Nicole Guerra, V72.31 Routine Rn Endocrinology ANP-C Examination V76.2 Screening Malignant Neoplasm Cervix 627.2 Menopausal Or Female Climacteric State, Symptomatic 788.1 Dysuria Office Visit 05/27/2013 10:20a [facility] Nicole Guerra, ANP-C 788.1 Dysuria V74.5 Screening Examination Venereal Disease Office Visit 05/14/2013 1:00p [facility] Nicole Guerra 622.10 Dysplasia Of Cervix ANP-C NOS Office Visit 03/07/2013 11:20a [facility] Piter Tobin 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 NOS Office Visit 08/21/2011 10:40a [facility] Nicole Guerra, V72.31 Routine Rn Endocrinology ANP-C Examination V76.2 Screening Malignant Neoplasm Cervix 627.2 Menopausal Or Female Climacteric State, Symptomatic Office Visit 03/06/2011 10:40a [facility] Nicole Guerra, 795.03 Pap Smear Cervix ANP-C W/LGSIL Office Visit 08/18/2010 11:20a [facility] Nicole Guerra, V72.31 Routine Rn Endocrinology ANP-C Examination V76.2 Screening Malignant Neoplasm Cervix 627.2 Menopausal Or Female Climacteric State, Symptomatic Office Visit 07/21/2010 2:20p [facility] Sarita Breaux M.D. 611.71 Mastodynia 611.72 Lump Or Mass Breast Office Visit 04/25/2010 10:20a [facility] Nicole Guerra, 627.2 Menopausal Or Female ANP-C Climacteric State, Symptomatic Office Visit 01/24/2010 9:40a [facility] Nicole Guerra, 627.2 Menopausal Or Female ANP-C Climacteric State, Symptomatic V72.31 Routine Rn Endocrinology Examination V76.2 Screening Malignant Neoplasm Cervix Office Visit 06/21/2009 1:00p [facility] Leona De La Torre CNM V72.31 Routine Rn Endocrinology Examination V76.41 Screening Malignant Neoplasm Rectum V76.2 Screening Malignant Neoplasm Cervix Office Visit 06/12/2008 1:00p [facility] Leona De La Torre V72.31 Routine Rn Endocrinology Suite Q CNM Examination V76.2 Screening Malignant Neoplasm Cervix V76.41 Screening Malignant Neoplasm Rectum Office Visit 04/29/2008 1:20p [facility] Stephanie Purvis INDUCTION MACHINE SETTER, 218.1 Leiomyoma Uterus CNM Intramural 789.07 Pain Abdominal Generalized Office Visit 04/24/2008 1:00p [facility] Nicole Guerra, 789.9 Abdomen & Pelvis ANP-C Symptoms Other Office Visit 12/03/2007 3:40p [facility] Leona De La Torre, 627.2 Menopausal Or Female CNM Climacteric State, Symptomatic Office Visit 06/12/2007 3:00p [facility] Leona De La Torre V72.31 Routine Rn Endocrinology CNM Examination V78.0 Screening Iron Deficiency Anemia V76.2 Screening Malignant Neoplasm Cervix Office Visit 12/08/2005 9:30a [facility] Leona De La Torre CNM V72.31 Routine Rn Endocrinology Examination V76.2 Screening Malignant Neoplasm Cervix Office Visit 09/21/2003 1:00p [facility] Leona De La Torre V72.3 Examination CNM Gynecological Plan of Treatment Future Appointment(s):04/08/2019 11:30 am - Mya Servin MD at [facility] Adwrft2701/15/2019 - Mya Servin, MDR87.612 Low grade squamous intraepithelial lesion on cytologic smear
[2019-01-28 18:33] LABS: Influenza A Molecular POSITIVE (Negative)
[2019-01-28 18:43] LABS: ABS Basophils 0 10^3/ul (0-0.2); ABS Eosinophils 0 10^3/ul (0-0.6); ABS Lymphocytes 0.3 10^3/ul (1.0-4.8); ABS Monocytes 0.4 10^3/ul (0-0.8); ABS Neutrophils 3.9 10^3/ul (1.5-7.7); ABS Nucleated RBC 0 10^3/ul; Eosinophil % 0.1 %; Hematocrit 38 % (33-41); Lymphocyte % 6.7 %; Mean Corpuscular HGB Conc 34 g/dL (31-36); Mean Corpuscular Hemoglobin 30 pg (27-31); Mean Corpuscular Volume 86 fL (80-97); Mean Platelet Volume 8.8 fL (7.4-10.4); Nucleated Red Blood Cells % 0; Platelet Count 198 10^3/uL (150-450); Red Cell Distribution Width 14 % (10.5-15); White Blood Count 4.7 10^3/uL (3.5-10.8)
[2019-01-28 18:51] LABS: INR 0.94 (0.77-1.02)
[2019-01-28 19:08] LABS: ALT 14 U/L (7-52); AST 19 U/L (13-39); Albumin 4.3 g/dL (3.2-5.2); Albumin/Globulin Ratio 1.3 (1-3); Alkaline Phosphatase 79 U/L (34-104); Anion Gap 6 mmol/L (2-11); BUN/Creatinine Ratio 13.3 (8-20); Blood Urea Nitrogen 10 mg/dL (6-24); CO2 Carbon Dioxide 28 mmol/L (22-32); Calcium 8.8 mg/dL (8.6-10.3); Chloride 101 mmol/L (101-111); EGFR African American 97.1 (>60); EGFR Non-African American 80.2 (>60); Globulin 3.2 g/dL (2-4); Glucose 99 mg/dL (70-100); Potassium 4.3 mmol/L (3.5-5.0); Sodium 135 mmol/L (135-145); Total Protein 7.5 g/dL (6.4-8.9)
[2019-01-28] MEDS ORDERED: Iohexol 300* (CONTRAST) 10 ML SDV IV ONE (20:02)
[2019-01-28 20:13] LABS: Urine Appearance Clear; Urine Color Yellow; Urine Ketones 2+ (Negative); Urine Protein 1+(30 mg/dL) (Negative); Urine Specific Gravity 1.015 (1.010-1.030); Urine Urobilinogen Negative (Negative)
[2019-01-28 20:14] LABS: Urine Bilirubin Negative (Negative); Urine Blood 1+ (Negative); Urine Glucose Negative (Negative); Urine Nitrite Negative (Negative)
[2019-01-28 20:19] LABS: Urine Bacteria Absent (Absent); Urine Red Blood Cell 1+(3-5/hpf) (Absent); Urine White Blood Cell Trace(0-5/hpf) (Absent)
[2019-01-28] MEDS ORDERED: Oseltamivir CAP* 75 MG CAP PO ONE (21:31)
[2019-01-28] MEDS ORDERED: Acetaminophen TAB* 325 MG ONE (22:10)
[2019-01-28] MEDS ORDERED: Acetaminophen TAB* 325 MG PO ONE (22:12)
[2019-01-28 22:21] VITALS: BP 131/72
== END 2019-01-28 22:20 | disposition home or self-care (01) ==
LOC: ED 17:40
DX: J11.1 Influenza due to unidentified influenza virus with other respiratory manifestations (principal); K44.9 Diaphragmatic hernia without obstruction or gangrene; R00.0 Tachycardia, unspecified; I10 Essential (primary) hypertension; E07.9 Disorder of thyroid, unspecified; K58.9 Irritable bowel syndrome, unspecified; J45.909 Unspecified asthma, uncomplicated; M13.811 Other specified arthritis, right shoulder; F32.9 Major depressive disorder, single episode, unspecified; Z88.2 Allergy status to sulfonamides; Z88.8 Allergy status to other drugs, medicaments and biological substances; Z79.899 Other long term (current) drug therapy
CPT/HCPCS: 36415; 70450; 74177; 80053; 81003; 81015; 83690; 84484; 85025; 85610; 85730; 87086; 93005; 96361; 96374; 96375; 99283; A9270-GY; J2270; J2405; Q9967

== ENCOUNTER 2019-06-13 17:29 | Emergency (ER) | payer MEDICARE, MEDICAID ==
[2019-06-13 17:43] VITALS: BP 157/74
--- NOTE | 2019-06-13 17:55 | UC ---
Complaint Female HPI - HPI Summary HPI Summary: 54 yo female presents with back and abdominal pain since 1530 today. She tells me that she ate [employer] for lunch around 1300 and was sitting at her desk at work when she developed a sudden ache in her b/l flanks that radiates around to her abdomen. Discomfort has persisted since that time and seems worse with movement. She has a hx of UTIs and "bowel issues" and thinks it could be due to these. She also feels quite nauseous, but has not vomited. She denies fever, chills, headache, dizziness, SOB, chest pain, dysuria. - History Of Current Complaint Chief Complaint: UCAbdominalPain Stated Complaint: NAUSEA, STOMACH, FLANK PAIN Time Seen by Provider: 06/13/19 17:55 Hx Obtained From: Patient Hx Last Menstrual Period: many years ago - uterine ablation Onset/Duration: Sudden Onset Timing: Constant Severity Initially: Moderate Severity Currently: Moderate Pain Intensity: 8 Pain Scale Used: 0-10 Numeric - Allergies/Home Medications Allergies/Adverse Reactions: Allergies Allergy/AdvReac Type Severity Reaction Status Date / Time Sulfa (Sulfonamide Allergy Swelling Verified 06/13/19 17:43 Antibiotics) trimethoprim Allergy Swelling Verified 06/13/19 17:43 SEASONAL ALLERGIES Allergy SINUS Uncoded 06/13/19 17:43 Home Medications: Home Medications Budesonide/Formote 160/4.5(NF) [Symbicort 160/4.5 (NF)] 2 puff INH DAILY [History Confirmed 06/13/19] PMH/Surg Hx/FS Hx/Imm Hx Endocrine History: Hypothyroidism, Dyslipidemia Respiratory History: Asthma GI/ History: Gastroesophageal Reflux Psychological History: Anxiety, Depression Other History Of: Negative For: HIV, Hepatitis B, Hepatitis C, Anticoagulant Therapy - Surgical History Surgical History: Yes Surgery Procedure, Year, and Place: YOUNG CHILD T&A. TEENAGER THYROIDECTOMY. 1990 BILATERAL TUBAL LIGATION [facility]. ? CARDIAC ARTERY ABLATION [place]. 09/16 R ELBOW SURGERY FOR TENDONITIS. DEQUERVEIN- SUMIT WRIST. 09/16 R CARPAL TUNNEL SURGERY, LT CARPAL TUNNEL RELEASE 2012. uterine ablation - Family History Known Family History: Positive: Cardiac Disease, Hypertension - Social History Occupation: Employed Full-time Lives: With Family Alcohol Use: Rare Substance Use Type: None Smoking Status (MU): Never Smoked Tobacco - Immunization History Most Recent Influenza Vaccination: fall 2012 Review of Systems All Other Systems Reviewed And Are Negative: Yes Constitutional: Positive: Negative Skin: Positive: Negative Eyes: Positive: Negative ENT: Positive: Negative Respiratory: Positive: Negative Cardiovascular: Positive: Negative Gastrointestinal: Positive: Abdominal Pain, Nausea Genitourinary: Positive: Negative Motor: Positive: Negative Neurovascular: Positive: Negative Musculoskeletal: Positive: Negative Neurological: Positive: Negative Psychological: Positive: Negative Physical Exam - Summary Physical Exam Summary: GENERAL: NAD. WDWN. No pain distress. SKIN: No rashes, sores, or open wounds. HEENT: Head: AT/NC Eyes: PERRLA. EOM intact. Conjunctiva clear without inflammation or discharge. Ears: Hearing grossly normal. TMs intact, no bulging, erythema, or edema. Nose: Nasal mucosa pink and moist. NTTP maxillary and frontal sinus. Throat: Posterior oropharynx without exudates, erythema, or tonsillar enlargement. Uvula midline. NECK: Supple. Nontender. No lymphadenopathy. CHEST: CTAB. No r/r/w. No accessory muscle use. Breathing comfortably and in no distress. CV: RRR. Without m/r/g. Pulses intact. Brisk cap refill. No pusitile mass in abdomen. No JVD. ABDOMEN: Mild TTP RUQ. Positive fitzgerald sign that reproduces nausea and symptoms. Remainder of abdomen is Soft. NTTP. No distention or guarding., No CVA tenderness. Bowel sounds present NEURO: Alert. CN II-XII grossly intact. PSYCH: Age appropriate behavior. Triage Information Reviewed: Yes Vital Signs: Initial Vital Signs Temp 97.1 F 06/13/19 17:37 Pulse 95 06/13/19 17:37 Resp 18 06/13/19 17:37 BP 157/74 06/13/19 17:37 Pulse Ox 97 06/13/19 17:37 Vital Signs Reviewed: Yes Complaint Female Dx - Course Course Of Treatment: UA with trace leuks. Pt did not want to wait for imaging results and was asking to leave. I told her that we will contact her tonight with her results and further plan of care and she was agreeable to this. Advised that if her symptoms worsened or if she developed new symptoms to go to the ER. CT: IMPRESSION: 1. There has been little change from 01/28/2019. No acute interval process is identified. 2. Minimal evidence of old granulomatous disease involving the liver spleen. US: IMPRESSION: Negative right upper quadrant sonogram. She is well appearing and afebrile. There are no imaging findings that correlate with her symptoms. I recommend that we send her urine for culture as she has a history of UTIs, although no urinary symptoms today, and treat as indicated. Monitor symptoms and if nausea and discomfort do not improve or if her symptoms worsen to be rechecked or go to the ER for further evaluation. - Differential Dx/Diagnosis Provider Diagnosis: Nausea, Abdominal pain Discharge - Sign-Out/Discharge Documenting (check all that apply): Patient Departure All imaging exams completed and their final reports reviewed: Yes - Discharge Plan Condition: Stable Disposition: HOME Referrals: Rafael March MD [Primary Care Provider] - Additional Instructions: If you develop a fever, shortness of breath, chest pain, new or worsening symptoms - please call your PCP or go to the ED immediately. We will call you tonight with your results and further plan of care - Billing Disposition and Condition Condition: STABLE Disposition: Home
--- OUTSIDE RECORDS SUMMARY | 2019-06-13 19:03 | XMS REPORT | Continuity of Care Document ---
:1965 External Reference #:[id number] Author Name Brian Gonzalesitlyn Care Team Providers Name Role Phone Rafael March MD Primary Care Physician Unavailable Payers Date Identification Numbers Payment Provider Subscriber Effective: 2015 Policy Number: [id number] Medicare Drea Moreno PayID: [id number] [address] [place] [address] Expires: 2015 Policy Number: [id number] [facility] Drea Moreno Onset: 2014 PayID: [id number] [address] [address] [place] [address] Effective: 2009 Policy Number: Arshad/[employer] Medicaid Drea Moreno [id number] Expires: 2015 PayID: [id number] [address] [address] [place] [address] Policy Number: [id number] Medicaid Drea Moreno PayID: [id number] [address] [place] [address] Problems Active Problems Provider Date Strain of muscle(s) and tendon(s) of the rotator Herber Burk M.D. Onset: 01/2015 cuff of left shoulder, subsequent encounter [facility] tendinitis of left shoulder Mike Saldaña MD Onset: 09/27/2015 Lateral epicondylitis Mike Saldaña MD Onset: 02/29/2016 Asthma without status asthmaticus Denia Mitchell MD Onset: 05/23/2016 Disturbance in sleep behavior Denia Mitchell MD Onset: 05/23/2016 Obesity Denia Mitchell MD Onset: 05/23/2016 Brachial neuritis Mike Saldaña MD Onset: 04/26/2017 Carpal tunnel syndrome of left wrist Mike Saldaña MD Onset: 02/18/2019 Disorder of shoulder Mike Saldaña MD Onset: 02/18/2019 Family History Date Family Member(s) Observation Comments General heart disease General hypertension General diabetes General Daughter at age 32 from Brain Cancer Father Heart disease, DM alive Mother No Current Problems Siblings 6 1/2 siblings 1/2 brother w/prostate cancer , Agent [place] Social History Type Date Description Comments Sex Unknown Marital Status Occupation Currently Working ETOH Use Denies alcohol use Tobacco Use Start: Unknown Patient has never smoked Recreational Drug Use Denies Drug Use Smoking Status Reviewed: 05/26/19 Patient has never smoked Exercise Type/Frequency Does not exercise Allergies, Adverse Reactions, Alerts Active Allergies Reaction Severity Comments Date Bactrim 12/08/2013 Medications Active Medications SIG Qnty Indications Ordering Provider Date Fluticasone Propionate 1 spray each 48gm Denia Mitchell, 05/09/2019 nostril daily 50mcg/Act Suspension Pristiq once a day Unknown 05/22/2016 100mg Tablets ER 24HR Symbicort 2 puff twice a Unknown 05/22/2016 Aerosol day Ibuprofen take 1 tablet by krystal Ott 07/18/2013 600mg Tablets mouth three [place]ord[place], [employer] times a day with food stop if stomach pain or bleeding Align Daily Unknown Fiber Con Daily Unknown Prempro 1 by mouth every Unknown 0.3-1.5mg Tablets day (05/23/16 pt not taking) Nasonex 1 spray nasally 17gm Denia Mitchell, 50mcg/Act each side every MD Suspension day Losartan Potassium 1 by mouth every Unknown 100mg day Tablets Montelukast Sodium 1 by mouth every Unknown 10mg day Tablets Pravastatin Sodium 1 tablet by Unknown 20mg mouth once daily Tablets at bedtime Desloratadine 1 by mouth every Unknown 5mg Tablets day Levothyroxine Sodium 1 by mouth every Unknown day 88mcg Tablets Ondansetron take 1 under Unknown 8mg Tablets tongue q8 hours Dispers as needed nausea Omeprazole 1 by mouth every Unknown 40mg Capsules day DR Aaliyah AGUSTIN 2 puffs by mouth Unknown 108(90Base) every 4 hours as mcg/Act Aerosol needed Metoclopramide HCL 1 by mouth three Unknown 10mg times a day as Tablets needed nausea or headache History Medications [place] 1-2 by mouth 50tabs M75.32 Miek Saldaña MD 11/09/2015 - 5-325mg every 4 to 6 02/27/2016 Tablets hours as needed pain Zofran 1 every 6 hours 30tabs M75.32 Mike Saldaña MD 11/09/2015 - 4mg as needed nausea 02/27/2016 Tablets Keflex one tablet three 15caps M75.32 Mike Saldaña MD 11/09/2015 - 500mg times a day x 5 02/27/2016 Capsules days [place] 1-2 po q4h prn 30tabs Audrey 01/13/2013 - 5-325mg Melina Johnson 06/04/2014 Tablets Zofran Odt q4-6h prn 40tabs Audrey 01/13/2013 - 4mg Melina Johnson 06/04/2014 Tablets Dispers Medications Administered in Office Medication SIG Qnty Indications Ordering Provider Date Depomedrol 80MG Herber Burk M.D. 11/26/2014 Injection Depomedrol 80MG Herber Bruk M.D. 03/27/2013 Injection Depomedrol 80MG Herber Burk M.D. 11/21/2012 Injection Celestone 3 mg and 3mg Audrey Johnson, 05/03/2012 Injection Melina Celestone 3 mg and 3mg Audrey Johnson, 05/03/2012 Injection Melina Celestone 3 mg and [address] 01/26/2012 Injection Celestone 3 mg and 3mg Audrey Johnson, 08/10/2010 Injection Melina Immunizations CPT Code Status Date Vaccine Lot # [id number] Given 09/09/2010 Influenza Virus 3Yrs & Over [id number] Vital Signs Date Vital Result Comment 05/26/2019 9:09am Height 62 inches 5'2" Weight 175.00 lb Heart Rate 102 /min BP Systolic Sitting 130 mmHg Lue large cuff BP Diastolic Sitting 90 mmHg Lue large cuff Respiratory Rate 16 /min O2 % BldC Oximetry 97 % BMI (Body Mass Index) 32.0 kg/m2 04/24/2019 9:22am Height 62 inches 5'2" Weight 175.00 lb BP Systolic 128 mmHg BP Diastolic 78 mmHg Respiratory Rate 18 /min Pain Level 2 BMI (Body Mass Index) 32.0 kg/m2 03/18/2019 10:47am Height 62 inches 5'2" Weight 175.00 lb BP Systolic 140 mmHg BP Diastolic 80 mmHg Respiratory Rate 18 /min Pain Level 4 BMI (Body Mass Index) 32.0 kg/m2 03/14/2019 10:35am Height 62 inches 5'2" Heart Rate 84 /min BP Systolic Sitting 126 mmHg Rue large cuff BP Diastolic Sitting 84 mmHg Rue large cuff Respiratory Rate 16 /min O2 % BldC Oximetry 97 % Neck Circumference in inches 14 02/18/2019 11:42am Height 62 inches 5'2" Weight 175.00 lb Heart Rate 66 /min BP Systolic 124 mmHg BP Diastolic 82 mmHg Body Temperature 98.1 F Pain Level 2 BMI (Body Mass Index) 32.0 kg/m2 04/26/2017 11:36am Height 62 inches 5'2" Weight 175.00 lb Heart Rate 91 /min BP Systolic 133 mmHg BP Diastolic 88 mmHg BMI (Body Mass Index) 32.0 kg/m2 06/12/2016 8:14am Height 63 inches 5'3" Weight 185.00 lb Heart Rate 100 /min BP Systolic 120 mmHg BP Diastolic 82 mmHg Respiratory Rate 14 /min O2 % BldC Oximetry 96 % BMI (Body Mass Index) 32.8 kg/m2 05/23/2016 10:37am Height 63 inches 5'3" Weight 185.12 lb Heart Rate 113 /min BP Systolic Sitting 124 mmHg BP Diastolic Sitting 78 mmHg Respiratory Rate 18 /min O2 % BldC Oximetry 97 % BMI (Body Mass Index) 32.8 kg/m2 02/29/2016 1:15pm Height 63 inches 5'3" Weight 172.00 lb Heart Rate 100 /min BP Systolic 138 mmHg BP Diastolic 87 mmHg BMI (Body Mass Index) 30.5 kg/m2 12/28/2015 11:37am Height 63 inches 5'3" Weight 172.00 lb BMI (Body Mass Index) 30.5 kg/m2 12/01/2015 8:25am Height 63 inches 5'3" Weight 172.00 lb Body Temperature 98.6 F Pain Level 4 BMI (Body Mass Index) 30.5 kg/m2 11/09/2015 9:22am Height 62 inches 5'2" Weight 173.00 lb Heart Rate 108 /min BP Systolic 138 mmHg BP Diastolic 84 mmHg BMI (Body Mass Index) 31.6 kg/m2 09/27/2015 2:20pm Height 62 inches 5'2" Weight 173.00 lb BMI (Body Mass Index) 31.6 kg/m2 09/07/2015 2:07pm Height 62 inches 5'2" Weight 173.00 lb Pain Level 5 BMI (Body Mass Index) 31.6 kg/m2 12/09/2014 11:06am Height 62 inches 5'2" Weight 173.00 lb Pain Level 2 BMI (Body Mass Index) 31.6 kg/m2 11/26/2014 10:29am Height 62 inches 5'2" Weight 173.00 lb Pain Level 7 BMI (Body Mass Index) 31.6 kg/m2 11/18/2014 10:02am Height 62 inches 5'2" Weight 179.00 lb Pain Level 8 BMI (Body Mass Index) 32.7 kg/m2 06/30/2014 3:21pm Heart Rate 98 /min BP Systolic Sitting 120 mmHg BP Diastolic Sitting 86 mmHg Pain Level 3 06/09/2014 11:21am Height 62 inches 5'2" Weight 179.00 lb Pain Level 4 BMI (Body Mass Index) 32.7 kg/m2 06/04/2014 10:41am Height 62 inches 5'2" Weight 179.00 lb Heart Rate 76 /min BP Systolic Sitting 130 mmHg BP Diastolic Sitting 80 mmHg Pain Level 4 neck & shoulders BMI (Body Mass Index) 32.7 kg/m2 02/23/2014 1:18pm Height 62 inches 5'2" Heart Rate 103 /min BP Systolic 120 mmHg BP Diastolic 75 mmHg Procedures Date Code Description Status 05/14/2019 80541 Diffusing Capacity Completed 05/14/2019 36919 Plethysmography Determination Lung Volumes & Per Airway Completed Resist 05/14/2019 62361 Pulmonary Function><Bronchodil Completed 04/14/2019 81102 Polysomnography Sleep Staging 4+ Parameters Completed 05/30/2016 07379 Sleep Study Unattended,HRT Rate,Oxygen Sat,Resp Completed Effort/Airflow 11/18/2015 00678 Arthroscopy,Shoulder Decompression Of Subacromial Space Completed W/Acromio 11/18/2015 78877 Arthroscopy,Shoulder Decompression Of Subacromial Space Completed W/Acromio 11/18/2015 42727 Arthroscopy Shoulder Debridement Limited Completed 11/18/201537829 Arthroscopy Shoulder Debridement Limited Completed 11/26/2014 Inject/Drain Joint/Bursa Intermediate W/O US Completed 03/27/2013 Inject/Drain Joint/Bursa Intermediate W/O US Completed 01/24/2013 97827 Dequervains-Tendon Sheath Incision/Extensor Sheath,Wrist Completed 01/24/201395245 Carpal Tunnel Release Completed 01/24/201343505 Carpal Tunnel Release Completed 11/21/2012 Inject/Drain Joint/Bursa Intermediate W/O US Completed 10/24/2012 80328 Rad Shoulder Comp, Min. 2 Views Completed 09/12/201292998 Carpal Tunnel Release Completed 09/12/2012 41185 Tenotomy Elbow Debridement W/Tendon Repair Or Completed Reattachement 09/12/2012 73306 Tenotomy Elbow Debridement W/Tendon Repair Or Completed Reattachement 05/03/2012 48389 Injection Single Tendon Origin/Insertion Completed 01/26/2012 75443 Rad Exam; Elbow, Limited Completed 01/26/201262285 Inject/Drain Joint/Bursa Intermediate W/O US Completed 01/26/2012 53907 Injection Single Tendon Origin/Insertion Completed 07/20/2011 90043 Dequervains-Tendon Sheath Incision/Extensor Sheath,Wrist Completed 07/20/2011 93609 Dequervains-Tendon Sheath Incision/Extensor Sheath,Wrist Completed 08/10/2010 28570 Rad Exam; Wrist, Comp, Min 3 Views Completed 08/10/2010 58689 Inject Tendon Sheath Or Ligament Aponeurosis Eg Plantar Completed Fascia Encounters Type Date Location Provider Dx Diagnosis Office Visit 05/26/2019 Pulmonology And Sleep Denia Mitchell MD 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 elbow M75.42 Impingement syndrome of left shoulder M54.12 Radiculopathy, cervical region Office Visit 03/18/2019 Orthopedic Mike Saldaña M77.12 Lateral 10:45a Services Of epicondylitis, left C.M.A. elbow M75.42 Impingement syndrome of left shoulder M54.12 Radiculopathy, cervical region Office Visit 03/14/2019 11:00a Pulmonology And Sleep Denia Mitchell MD R05 Cough Services Of [facility] J45.909 Unspecified asthma, uncomplicated G47.9 Sleep disorder, unspecified Office Visit 02/18/2019 Orthopedic Mike Saldaña M77.12 Lateral 11:30a Services Of epicarianna, left C.M.A. elbow G56.02 Carpal tunnel syndrome, left upper limb M75.42 Impingement syndrome of left shoulder Office Visit 04/26/2017 Orthopedic Darío Oconnor77.12 Lateral 11:00a Services Of MD phillips, left C.M.A. elbow M54.12 Radiculopathy, cervical region Office Visit 04/09/2017 3:30p [facility] Dermatology Roland Patel, L82.1 Other seborrheic MD keratosis R52 Pain, unspecified Office Visit 06/12/2016 Pulmonology And Denia J45.909 Unspecified asthma , 8:00a Sleep Services Of MD Stephen uncomplicated [employer] E66.09 Other obesity due to excess calories Office Visit 05/23/2016 Pulmonology And Denia J45.909 Unspecified asthma , 10:15a Sleep Services Of MD Stephen uncomplicated [employer] G47.9 Sleep disorder, unspecified E66.09 Other obesity due to excess calories Office Visit 02/29/2016 1:00p Orthopedic Ansley Oconnor.32 [facility] Services Of tendbelen of C.M.A. left shoulder M77.12 Lateral epicondylitis, left elbow Office Visit 09/27/2015 Orthopedic Darío Oconnor75.32 Calcific 1:30p Services Of MD newman of left C.M.A. shoulder Office Visit 09/07/2015 Orthopedic Herber Burk, S46.012D Strain of 1:45p Services Of Melina morin/tend the C.M.A. rotator cuff of left shoulder, subs Office Visit 12/09/2014 Orthopedic Audrey 726.32 Epicondylitis 10:45a Services Of Syd Johnson C.M.A., M.D. Office Visit 11/26/2014 Orthopedic Herber Burk, 716.91 Arthropathy Unspec 10:15a Services Of Melina Shoulder Region C.M.AMarci Office Visit 11/18/2014 Orthopedic Audrey 726.32 Epicondylitis 9:45a Services Of Syd Johnson C.M.A., M.D. Office Visit 06/30/2014 Neurosurgery Saúl Rodriguez 721.0 Spondylosis 3:20p Services Of Jyoti Silverio M.D. Cervical W/O Myelopathy 847.0 Sprains & Strains Neck Office Visit 06/09/2014 Orthopedic Audrey 726.32 Epicondylitis 10:45a Services Of Melina Johnson Lateral C.M.AMarci Office Visit 02/23/2014 Orthopedic Kamila Romero 726.32 Epicondylitis 1:00p Services Of YUE Velarde C.M.AMarci 727.04 Tenosynovitis Radial Styloid Office 09/01/2013 Orthopedic Audrey 715.34 Osteoarthrosis Visit 10:15a Services Of Melina Johnson Not Spec C.M.A. Prime Or 2Ndy Hand 726.32 Epicondylitis Lateral Office 07/18/2013 Orthopedic Audrey 715.34 Osteoarthrosis Visit 10:15a Services Of Ragini Johnson Not Spec C.M.A. M.Carol Ann Prime Or 2Ndy Hand Office 03/19/2013 Neurosurgery Saúl Silverio, 721.1 Spondylosis Visit 3:00p Services Of Jyoti Summers Cervical W/ Myelopathy Office 12/26/2012 Orthopedic Herber Burk M.D. 726.2 Shoulder Region Visit 3:45p Services Of Affections Other C.M.A. Not Elsewhere Class Office 12/16/2012 Orthopedic Audrey 726.32 Epicondylitis Visit 11:15a Services Of Syd Johnson C.M.A., M.D. 727.04 Tenosynovitis Radial Styloid 354.0 Carpal Tunnel Syndrome Office Visit 11/21/2012 8:00a Orthopedic Herber Burk 726.2 Shoulder Region Services Of C.M.Juan Jose. MMarciD. Affections Other Not Elsewhere Class 715.11 Osteoarthrosis Localized Prim Shoulder Region Office Visit 11/14/2012 3:15p Orthopedic Herber Burk, 726.2 Shoulder Region Services Of C.M.A. MMarciDMarci Affections Other Not Elsewhere Class 715.91 Osteoarthrosis Unspec Genlzd Or Localized Shoulder Office Visit 10/24/2012 2:30p Orthopedic Herber Burk, 840.4 Sprains & Services Of Herson.M.A. MMarciDMarci Strains Rotator Cuff (Capsule) 726.2 Shoulder Region Affections Other Not Elsewhere Class Office Visit 05/03/2012 Orthopedic Audrey 726.32 Epicondylitis 11:30a Services Of Melina Johnson Lateral C.M.A. 354.0 Carpal Tunnel Syndrome Office Visit 01/26/2012 Orthopedic Kamila Romero 726.32 Epicondylitis 9:30a Services Of RPA-C Lateral C.M.A. 354.0 Carpal Tunnel Syndrome Office 06/30/2011 Orthopedic Audrey 727.04 Tenosynovitis Visit 10:00a Services Of Melina Johnson Radial Styloid C.M.A. Office 12/19/2010 Orthopedic Audrey 727.04 Tenosynovitis Visit 10:45a Services Of Melina Johnson Radial Styloid C.M.A. Office 08/10/2010 Orthopedic Audrey 727.04 Tenosynovitis Visit 1:00p Services Of Melina Johnson Radial Styloid C.M.A. Office 08/10/2009 Neurosurgery Saúl Silverio, 787.29 Other Dysphagia Visit 9:20a Services Of Jyoti Summers 796.1 Reflex Finding Abnormal Office Visit 02/26/2009 3:20p Neurosurgery Saúl Rodriguez 721.1 Spondylosis Services Of Jyoti Silverio M.D. Cervical W/ Myelopathy Office Visit 01/25/2009 9:00a Neurosurgery Saúl Rodriguez 721.1 Spondylosis Services Of Jyoti Silverio M.D. Cervical W/ Myelopathy Plan of Treatment 05/26/2019 - Denia Mitchell, MDR05 CoughFollow up:1 yearJ45.909 Unspecified asthma, uncomplicated
== END 2019-06-13 19:58 | disposition home or self-care (01) ==
LOC: UCEAST 17:29
DX: R10.9 Unspecified abdominal pain (principal); R11.0 Nausea; E03.9 Hypothyroidism, unspecified; E78.5 Hyperlipidemia, unspecified; J45.909 Unspecified asthma, uncomplicated; K21.9 Gastro-esophageal reflux disease without esophagitis; F41.9 Anxiety disorder, unspecified; F32.9 Major depressive disorder, single episode, unspecified; Z88.2 Allergy status to sulfonamides
CPT/HCPCS: 74176; 76705; 81002; 87086; 99211; G0463

== ENCOUNTER 2021-10-16 18:53 | Inpatient (IN) ==
[2021-10-16 20:28] LABS: ABS Lymphocytes 1.4 10^3/ul (1.0-4.8); ABS Monocytes 0.3 10^3/ul (0-0.8); ABS Neutrophils 3.7 10^3/ul (1.5-7.7); Eosinophil % 0.7 %; Hematocrit 38 % (35-47); Hemoglobin 12.9 g/dL (12.0-16.0); Lymphocyte % 25.4 %; Mean Corpuscular HGB Conc 34 g/dL (31-36); Mean Corpuscular Hemoglobin 28 pg (27-31); Mean Corpuscular Volume 84 fL (80-97); Mean Platelet Volume 9.6 fL (7.4-10.4); Platelet Count 235 10^3/uL (150-450); Red Blood Count 4.55 10^6 /uL (3.70-4.87); Red Cell Distribution Width 15 % (10-15); White Blood Count 5.5 10^3/uL (3.5-10.8)
[2021-10-16 20:51] LABS: ALT 13 U/L (7-52); AST 18 U/L (13-39); Albumin 4.3 g/dL (3.2-5.2); Albumin/Globulin Ratio 1.3 (1-3); Alkaline Phosphatase 68 U/L (35-149); Anion Gap 6 mmol/L (2-11); Blood Urea Nitrogen 18 mg/dL (6-24); CO2 Carbon Dioxide 27 mmol/L (22-32); Calcium 9.3 mg/dL (8.6-10.3); Chloride 104 mmol/L (101-111); Globulin 3.2 g/dL (2-4); Glucose 92 mg/dL (70-100); Potassium 4.3 mmol/L (3.5-5.0); Sodium 137 mmol/L (135-145); Total Protein 7.5 g/dL (6.4-8.9); eGFR CKD-EPI 71.2 (>60)
[2021-10-16 20:56] LABS: Troponin I 0.05 ng/mL (<0.03)
[2021-10-16] MEDS ORDERED: Nitro 2% OINT (Nitroglycerin) 1 INCH/PAK TOPICAL ONE (22:25)
[2021-10-16] MEDS ORDERED: Albuterol 2.5mg/3 ml (0.083%) NEB.SOLN INH PRN (22:25)
[2021-10-16] MEDS ORDERED: Heparin DRIP 25,000 UNITS BAG 25,000 UNITS/500 ML BAG IV SCH (22:30)
[2021-10-16] MEDS ORDERED: Metoprolol Tartrate 5 mg VIAL 5 ml VIAL (1 mg/ml) IV ONE (22:35)
[2021-10-16] MEDS ORDERED: Heparin 5000 UNITS/ML 1 mL VIAL IV SCH (23:00)
[2021-10-16 23:34] LABS: Magnesium 2.3 mg/dL (1.9-2.7)
[2021-10-16 23:42] LABS: Rapid COVID-19 Molecular Undetected (Undetected)
[2021-10-16 23:45] LABS: Troponin I 0.06 ng/mL (<0.03)
[2021-10-17 03:25] LABS: Troponin I 0.06 ng/mL (<0.03)
[2021-10-17 06:46] LABS: ABS Eosinophils 0.1 10^3/ul (0-0.6); ABS Lymphocytes 1.7 10^3/ul (1.0-4.8); ABS Monocytes 0.4 10^3/ul (0-0.8); ABS Neutrophils 3.1 10^3/ul (1.5-7.7); Hematocrit 39 % (35-47); Hemoglobin 12.9 g/dL (12.0-16.0); Lymphocyte % 32.6 %; Mean Corpuscular HGB Conc 33 g/dL (31-36); Mean Corpuscular Hemoglobin 28 pg (27-31); Mean Corpuscular Volume 85 fL (80-97); Mean Platelet Volume 9.4 fL (7.4-10.4); Platelet Count 221 10^3/uL (150-450); Red Cell Distribution Width 15 % (10-15); White Blood Count 5.2 10^3/uL (3.5-10.8)
[2021-10-17 06:51] LABS: INR 1.06 (0.86-1.15)
[2021-10-17 07:11] LABS: Anion Gap 7 mmol/L (2-11); Blood Urea Nitrogen 17 mg/dL (6-24); CO2 Carbon Dioxide 28 mmol/L (22-32); Calcium 8.7 mg/dL (8.6-10.3); Chloride 103 mmol/L (101-111); Cholesterol 215 mg/dL; Glucose 97 mg/dL (70-100); HDL Cholesterol 69.6 mg/dL; LDL Cholesterol 112 mg/dL; Potassium 3.9 mmol/L (3.5-5.0); Sodium 138 mmol/L (135-145); Triglycerides 168 mg/dL; eGFR CKD-EPI 82.9 (>60)
[2021-10-17 07:27] LABS: Troponin I 0.05 ng/mL (<0.03)
[2021-10-17] MEDS: CMC:FLUTICAS/UMECLI/VILANT 200-62.5-25 MDI (NF) INH SCH (08:00)
[2021-10-17 08:40] LABS: T4, Total 11.11 mcg/dL (6.09-12.23)
[2021-10-17 08:49] LABS: Total T3 91 ng/dL (87-178)
[2021-10-17] MEDS ORDERED: diPHENhydraMINE 25 mg TAB PO PRN (09:00)
[2021-10-17] MEDS ORDERED: NS 0.9% 1000 ml BAG 1,000 ML IV SCH (09:00)
[2021-10-17] MEDS ORDERED: Acetaminophen IV 1 GM/100ML 100 ML IV ONE (09:33)
[2021-10-17] MEDS ORDERED: Iohexol 350 (CONTRAST) 200 ML MDV IV ONE (11:57)
[2021-10-17] MEDS ORDERED: Heparin 2 UNITS/ML 1000 mls 2,000 ML IV ONE (11:57)
[2021-10-17] MEDS ORDERED: Lidocaine 1% VIAL 10 MG/ML VIAL ONE (11:57)
[2021-10-17] MEDS ORDERED: VERAPAMIL 2.5 MG/ML 2 ML VIAL ** 5 mg/2 ml ONE (12:16)
[2021-10-17] MEDS ORDERED: Heparin 1,000 UNIT/ML 10 ml (10,000 UNITS) CATHLAB/DIALYSIS ONE (12:16)
[2021-10-17] MEDS ORDERED: nitroGLYCERIN DRIP 25,000 MCG/250 ML BTL ONE ×2 (12:16→12:17)
[2021-10-17] MEDS ORDERED: fentaNYL 100 mcg/2 ml 50 MCG/ML VIAL ONE (12:16)
[2021-10-17] MEDS ORDERED: Midazolam 5 mg/5 ml VIAL 1 mg/ml 5 ml VIAL (5 mg) ONE (12:16)
[2021-10-18 03:14] VITALS: BP 125/90
[2021-10-18] MEDS: CMC:FLUTICAS/UMECLI/VILANT 200-62.5-25 MDI (NF) INH SCH (08:56)
[2021-10-18] MEDS ORDERED: CONJ ESTROG MEDROXYPROGEST ACE PO SCH (09:00)
== END 2021-10-18 11:55 | disposition home or self-care (01) | DRG 287 ==
LOC: ED 18:53 → EDHOLD 22:19 → SUATTDRO 22:19 → MEDTELE 10-17 04:00
PROVIDERS: ADMIT Internal Medicine; ATTEND Internal Medicine